=== PATIENT | female | born 1955 | race Caucasian/White ===

== ENCOUNTER → 2017-03-31 | Outpatient (CLI) | payer BC ==
--- NOTE | 2017-04-05 07:37 | MM ---
Reason for exam: follow-up at short interval from prior study. Last mammogram was performed 10 months ago. History: Patient is postmenopausal and is nulliparous. Family history of breast cancer in sister and breast cancer in maternal aunt at age 50. Benign right breast aspiration of the right breast, September 10, 2011. Excisional biopsy of the left breast. 2 excisional biopsies of the right breast. Taking estrogen for 17 years 1 month. Physical Findings: Nurse Summary: less than 0.1cm nodule in the left breast (nurse kp). MG 3D Diag Mammo W/Cad JOE Bilateral CC and MLO view(s) were taken. Prior study comparison: June 04, 2016, right breast MG 3d diag mammo w/cad RT. June 04, 2016, right breast US breast limited RT. December 01, 2015, bilateral MG 3d diag mammo w/cad JOE. There are scattered fibroglandular densities. There is a well circumscribed mass in the upper outer quadrant measuring 5mm on right breast. Previously sonographic cyst at 10 o'clock. These results were verbally communicated with the patient and result sheet given to the patient on 03/31/17. ASSESSMENT: Incomplete: need additional imaging evaluation, BI-RAD 0 RECOMMENDATION: Ultrasound of both breasts. (right 12 o'clock, left at palpable)
--- NOTE | 2017-04-05 07:42 | USB ---
Reason for exam: additional evaluation requested from abnormal screening. History: Patient is postmenopausal and is nulliparous. Family history of breast cancer in sister and breast cancer in maternal aunt at age 50. Benign right breast aspiration of the right breast, September 10, 2011. Excisional biopsy of the left breast. 2 excisional biopsies of the right breast. Taking estrogen for 17 years 1 month. US Breast Limited BILAT Right breast ultrasound demonstrates a 0.3 x 0.3 x 0.3cm round, cystic lesion at 12 o'clock and a 0.8 x 0.4 x 0.4cm oval, irregular, hypoechoic lesion at 12 o'clock for which a biopsy is recommended. Ductal prominence retroareolar position. Left breast ultrasound demonstrates a 0.3 x 0.2 x 0.2cm oval lesion too small to characterize at 1 o'clock, a 0.3 x 0.3 x 0.2cm oval lesion too small to characterize at 2 o'clock over palpable BB marker and a 0.3 x 0.3 x 0.3cm round, cystic lesion at 3 o'clock. These results were verbally communicated with the patient and result sheet given to the patient on 03/31/17. ASSESSMENT: Suspicious, BI-RAD 4 RECOMMENDATION: Ultrasound core biopsy of the right breast. (12 o'clock) Called Dr. Alfred with mammographic findings and has scheduled an appointment for the patient for 04/21/17 at 10:[address] Gupta. Right ultrasound core biopsy scheduled for 04/05/17 at 8 o'clock. PRELIMINARY REPORT CALLED AND FAXED TO DR. GUPTA ON 04/05/17 /TP.
== END | disposition home or self-care (01) ==
LOC: RADMAMWWP 13:44
PROVIDERS: ATTEND Family Medicine
DX: R92.8 Other abnormal and inconclusive findings on diagnostic imaging of breast (principal)
CPT/HCPCS: 76642; G0204; G0279

== ENCOUNTER → 2017-04-05 | Day surgery (SDC) | payer BC ==
[2017-04-05 07:32] VITALS: RESP 16; BMI 30.4
--- NOTE | 2017-04-05 09:12 | USB ---
EXAMINATION TYPE: US biopsy breast VAD RT DATE OF EXAM: 04/05/2017 CLINICAL HISTORY: R92.8 Abnormal mammogram. TECHNIQUE: Ultrasound guided core biopsy of right breast. COMPARISON: Prior ultrasound 03/31/2017 FINDINGS: The procedure of ultrasound guided vacuum assisted core biopsy was explained to the patient . Benefits, alternatives, and risks were discussed. An informed consent was then obtained. The patient was placed in supine positioning for imaging and for the procedure. The overlying skin w as prepped and draped in usual sterile fashion. Lidocaine buffered with bicarbonate was used as anes thetic into the skin and subcutaneous tissue up to area of concern in the right breast 12:00. A blane was made with surgical scalpel. Under ultrasound guidance, a 12-gauge vacuum assisted biopsy gun device was used to obtain 2 core eva ples. Following this, a biopsy clip was left in lesion. The patient tolerated the procedure well without any immediate complication. The patient was kept in the radiology department for short stay after the procedure and then discharged home in stable condi tion. IMPRESSION: Successful, uncomplicated ultrasound guided vacuum assisted core biopsy of area of concer n in the right breast, full pathology results to follow.
--- NOTE | 2017-04-05 09:32 | MM ---
Reason for exam: additional evaluation requested from abnormal screening. Last mammogram was performed less than 1 month ago. History: Patient is postmenopausal and is nulliparous. Family history of breast cancer in sister and breast cancer in maternal aunt at age 50. Benign right breast aspiration of the right breast, September 10, 2011. Excisional biopsy of the left breast. 2 excisional biopsies of the right breast. Taking estrogen for 17 years 1 month. MG Diagnostic Mammo RT Wo CAD CC and MLO view(s) were taken of the right breast. Prior study comparison: March 31, 2017, bilateral MG 3d diag mammo w/cad JOE. June 04, 2016, right breast MG 3d diag mammo w/cad RT. ASSESSMENT: Post procedure mammogram for marker placement RECOMMENDATION: Ultrasound of the right breast in 6 months. PENDING PATHOLOGY RESULTS.
[2017-04-05 11:03] VITALS: BP 125/75; PULSE 68; TEMP 97.5
== END ==
LOC: RADUSWWP 07:03
PROVIDERS: ATTEND Surgery
DX: N60.31 Fibrosclerosis of right breast (principal); R92.8 Other abnormal and inconclusive findings on diagnostic imaging of breast; N64.89 Other specified disorders of breast; Z88.1 Allergy status to other antibiotic agents; Z88.5 Allergy status to narcotic agent; Z88.8 Allergy status to other drugs, medicaments and biological substances
CPT/HCPCS: 88305; 19083; G0206; A4648

== ENCOUNTER → 2017-10-07 | Outpatient (CLI) | payer BC ==
--- NOTE | 2017-10-10 12:38 | MM ---
Reason for exam: additional evaluation requested from prior study. Last mammogram was performed 6 months ago. History: Patient is postmenopausal and is nulliparous. Family history of breast cancer in sister and breast cancer in maternal aunt at age 50. Benign US biopsy breast VAD RT of the right breast, April 05, 2017. Benign right breast aspiration of the right breast, September 10, 2011. Excisional biopsy of the left breast. 2 excisional biopsies of the right breast. Taking estrogen for 17 years 1 month. Physical Findings: Nurse did not find any significant physical abnormalities on exam. MG 3D Diag Mammo W/Cad RT CC and MLO view(s) were taken of the right breast. Prior study comparison: April 05, 2017, right breast MG diagnostic mammo RT wo CAD. March 31, 2017, bilateral MG 3d diag mammo w/cad JEO. The breast tissue is heterogeneously dense. This may lower the sensitivity of mammography. No suspicious abnormality. Post biopsy change next to the ribbon marker. Additional right biopsy coil marker. No significant new findings when compared with previous films. These results were verbally communicated with the patient and result sheet given to the patient on 10/07/17. ASSESSMENT: Benign, BI-RAD 2 RECOMMENDATION: Routine screening mammogram of both breasts in 6 months. Back on schedule for March 2018.
--- NOTE | 2017-10-10 12:41 | USB ---
Reason for exam: additional evaluation requested from prior study. History: Patient is postmenopausal and is nulliparous. Family history of breast cancer in sister and breast cancer in maternal aunt at age 50. Benign US biopsy breast VAD RT of the right breast, April 05, 2017. Benign right breast aspiration of the right breast, September 10, 2011. Excisional biopsy of the left breast. 2 excisional biopsies of the right breast. Taking estrogen for 17 years 1 month. US Breast RT Right breast ultrasound includes all four quadrants, the retroareolar region and axilla. Finding demonstrates a duct at 8 o'clock, a 0.5 x 0.5 x 0.3cm oval, cystic, benign lesion at 9 o'clock, a 0.4 x 0.3 x 0.3cm oval, cystic, benign lesion at 10 o'clock and clip seen at 12 o'clock with no suspicious sonographic finding in the previously biopsied area. These results were verbally communicated with the patient and result sheet given to the patient on 10/07/17. ASSESSMENT: Benign, BI-RAD 2 RECOMMENDATION: Routine screening mammogram of both breasts in 6 months. Back on schedule for March 2018.
== END ==
LOC: RADMAMWWP 14:57
PROVIDERS: ATTEND Surgery
DX: R92.8 Other abnormal and inconclusive findings on diagnostic imaging of breast (principal)
CPT/HCPCS: 77065; 76641; G0279

== ENCOUNTER → 2018-02-07 | Outpatient (CLI) | payer BC ==
--- NOTE | 2018-02-07 22:41 | CT ---
EXAMINATION TYPE: CT orbits wo/w con DATE OF EXAM: 02/07/2018 COMPARISON: None HISTORY: Swelling Right orbit marked by BB CT DLP: 717.4 mGycm Automated exposure control for dose reduction was used. CONTRAST: Performed without and with IV Contrast, patient injected with 100 mL of Isovue 300. FINDINGS: Globes are intact bilaterally. Rectus muscles are symmetric and within normal limits. Intraconal fat is preserved bilaterally. Orbital floors and alvarez are intact. There is metallic BB at site of palpab le abnormality identified axial image 21. At this level there is rim-enhancing oval 7 x 5 mm lesion a djacent to right aspect of nasal bridge felt to reflect inflammation of the nasolacrimal sac related to impairment in the the lacrimal drainage system. Visualized paranasal sinuses are clear. Ostiomeatal complexes patent bilaterally. Visualized portion of brain parenchyma is unremarkable. No suspicious enhancement is noted. IMPRESSION: ABOVE, SUSPECT DACROCYSTITIS IF SYMPTOMS DO NOT RESOLVE CONSIDER IMAGING FOLLOW-UP IN 2-3 MONTHS T TRACY.
== END ==
LOC: RADCTMAIN 17:32
PROVIDERS: ATTEND Ophthalmology
DX: H04.321 Acute dacryocystitis of right lacrimal passage (principal); Z88.8 Allergy status to other drugs, medicaments and biological substances; Z88.6 Allergy status to analgesic agent; Z88.1 Allergy status to other antibiotic agents
CPT/HCPCS: 70482; Q9967

== ENCOUNTER 2018-02-17 07:31 | Day surgery (SDC) | payer BC ==
[2018-02-15 16:09] VITALS: BMI 28.6
[~2018-02-17 07:31] MED LIST: LACTATED RINGERS 1,000 ML IV SCH; LIDOCAINE 1% 20 ML VIAL (10MG/ML) FOR IV START INTRADERMA PRN
[2018-02-17 07:59] VITALS: TEMP 97.6
[2018-02-17] MEDS ORDERED: PROPOFOL 10 MG/ML 20 ML VIAL IV ONE (08:03)
[2018-02-17] MEDS ORDERED: LIDOCAINE 1% INJ 10MG/ML (20 ML MDV) ONE (08:03)
[2018-02-17 08:05] LABS: Glucose,Whole Blood 93 mg/dL (75-99)
--- NOTE | 2018-02-17 08:35 | P.PCN ---
Date of Procedure: 02/17/18 Procedure(s) Performed: Brief history: Patient is a pleasant 62-year-old white female scheduled for an elective upper endoscopy as well as colonoscopy as a part of evaluation of GERD and intermittent rectal bleeding. She has good for the last 2 years duration has been maintained on now Prilosec 20 mg daily and has occasional breakthrough heartburn. She is been having intermittent rectal bleeding for the last 1 month duration. Procedure performed: Esophagogastroduodenoscopy with biopsy Colonoscopy with biopsy Preoperative diagnosis: Intermittent rectal bleeding Long-standing history of GERD Anesthesia: MAC Procedure: After informed consent was obtained from the patient was brought into the endoscopy unit and IV sedation was administered by anesthesia under continuous monitoring. Initially upper endoscopy was done. The Olympus GF 160 video endoscope was inserted inserted into the mouth and esophagus intubated without any difficulty and was gradually advanced into the stomach and duodenum and carefully examined. The bulb and second part of the duodenum appeared normal. The scope was then withdrawn into the stomach adequately insufflated with air and upon careful examination the antrum had scattered erosions and biopsies were done from this area. The body, cardia and fundus appeared normal. There are scattered gastric polyps noted in the body of the stomach which were biopsied. The scope was then withdrawn into the esophagus. The GE junction was located at 38 cm to the incisors. It appeared regular wsuperficial erosions consistent with LA grade B reflux esophagitis Rest of the esophagus appeared normal. Patient tolerated the procedure well. At this time the patient continued to remain sedation. Initial digital rectal examination was normal. Olympus CF 160 video colonoscope was then inserted into the rectum and gradually advanced to the cecum without any difficulty. Careful examination was performed as the scope was gradually being withdrawn. The prep was excellent. The cecum, ascending colon, transverse colon, descending colon, sigmoid colon and rectum appeared normal. In the distal rectum there was mild patchy areas of erythema consistent with proctitis and biopsies were done from this area. Retroflexion was performed in the rectum and small internal hemorrhoids were noted. Patient tolerated the procedure well. Impression: 1. Upper endoscopy revealed mild antral gastritis, small gastric polyps and grade B reflux esophagitis 2. Colonoscopy revealed small internal hemorrhoids and mild distal proctitis. Recommendations: Findings of this examination were discussed with the patient as well as family. She was advised to follow with the biopsy results. Continue with Prilosec 20 mg daily and follow antireflux measures She will use [id number] osmotic laxatives as needed for the chronic constipation. She can have a repeat screening colonoscopy in 10 years
[2018-02-17] MEDS ORDERED: IV FLUID CONTINUATION 1,000 ML IV ONE (08:38)
[2018-02-17 08:55] VITALS: BP 115/75; PULSE 67; RESP 16
--- NOTE | 2018-02-21 17:01 | CDI ---
Outpatient Documentation Clarification Form Date: 02/21/18 CDS/Vp Informatics Name: Flores Daley Phone: If any questions, call Juliane Pearl Donkey Doctor at [phone] Patient Name: Monet Haddad Admit Date: 02/17/18 Discharge Date: 02/17/18 ATTENTION: The [facility] Coding Staff appreciate your assistance in clarifying documentation. Please respond to the clarification below the line at the bottom and electronically sign. The [facility] Coding staff will review the response and follow-up if needed. Please note: Queries are made part of the Legal Health Record. If you have any questions, please contact the Donkey Doctor. Dear Dr. Aden, What is the cause of the rectal bleeding? Thank you for your kind consideration. MTDD
--- NOTE | 2018-02-24 12:49 | CDI ---
Outpatient Documentation Clarification Form Date: 02/24/18 CDS/Care Manager Name: Flores Daley Phone: If any questions, call Juliane Pearl Barnworker Groom at [phone] Patient Name: Monet Haddad Admit Date: 02/17/18 Discharge Date: 02/17/18 ATTENTION: The [facility] Coding Staff appreciate your assistance in clarifying documentation. Please respond to the clarification below the line at the bottom and electronically sign. The [facility] Coding staff will review the response and follow-up if needed. Please note: Queries are made part of the Legal Health Record. If you have any questions, please contact the Barnworker Groom. Dear Dr. Aden, What is the cause of the rectal bleeding? Thank you for your kind consideration. MTDD
--- NOTE | 2018-02-28 11:31 | CDI ---
Outpatient Documentation Clarification Form Date: 02/28/18 CDS/Retarder Operator Name: Flores Daley Phone: If any questions, call Juliane Pearl Dairy Husbandry Worker at [phone] Patient Name: Monet Haddad Admit Date: 02/17/18 Discharge Date: 02/17/18 ATTENTION: The [facility] Coding Staff appreciate your assistance in clarifying documentation. Please respond to the clarification below the line at the bottom and electronically sign. The [facility] Coding staff will review the response and follow-up if needed. Please note: Queries are made part of the Legal Health Record. If you have any questions, please contact the Dairy Husbandry Worker. Dear Dr. Aden, What is the cause of the rectal bleeding? Our coding resources require us to query and ask. If you do not understand what is needed from you, please contact my launch manager above. This is a 3rd query. Thank you for your kind consideration. Bleeding is from both proctitis and internal hemorrhoids MTDD
== END 2018-02-17 09:34 | disposition home or self-care (01) ==
LOC: ORWHC2ENDO 07:31
PROVIDERS: ATTEND Internal Medicine Gastroenterology
DX: K29.50 Unspecified chronic gastritis without bleeding (principal); K31.7 Polyp of stomach and duodenum; K21.0 Gastro-esophageal reflux disease with esophagitis; K64.8 Other hemorrhoids; K62.89 Other specified diseases of anus and rectum; E07.9 Disorder of thyroid, unspecified; Z79.899 Other long term (current) drug therapy; Z79.2 Long term (current) use of antibiotics; Z79.890 Hormone replacement therapy; Z79.52 Long term (current) use of systemic steroids; Z88.5 Allergy status to narcotic agent; Z88.8 Allergy status to other drugs, medicaments and biological substances; Z91.041 Radiographic dye allergy status; Z88.1 Allergy status to other antibiotic agents
CPT/HCPCS: 88305; 45380; 43239; J2001; J2704

== ENCOUNTER 2018-03-14 06:17 | Day surgery (SDC) | payer BC ==
[2018-03-07 14:36] VITALS: BMI 28.8
[~2018-03-14 06:17] MED LIST changes: +DEXAMETHASONE SOD PHOSPHATE 10 MG/ML 1 ML VIAL IV ONE; +MIDAZOLAM 2 MG/2 ML VIAL IV PRN; +ONDANSETRON 4 MG/2 ML VIAL IVP ONE; +ceFAZolin 1,000 MG in DEXTROSE/WATER 1 50ML.BAG IVPB ONE; +ceFAZolin IN SWFI 2 GM/20 ML SYRINGE IVP ONE; +fentaNYL (PF) 50 MCG/ML 2 ML AMP IV PRN; +metroNIDAZOLE-NS PMX 500 MG in SALINE 1 100ML.BAG IVPB ONE
[2018-03-14 07:15] LABS: Glucose,Whole Blood 98 mg/dL (75-99)
[2018-03-14] MEDS ORDERED: LIDOCAINE 1% INJ 10MG/ML (20 ML MDV) ONE (07:57)
[2018-03-14] MEDS ORDERED: PROPOFOL 10 MG/ML 20 ML VIAL IV ONE (07:57)
[2018-03-14] MEDS ORDERED: BUPIVACAINE-EPI 0.5%-1:200,000 10 ML VIAL SQ ONE (08:19)
[2018-03-14] MEDS ORDERED: LIDOCAINE 1%-EPI 1:100,000 30 ML VIAL SQ ONE ×2 (08:19)
[2018-03-14] MEDS ORDERED: EPINEPHrine 1 MG/ML 1 ML AMP SQ ONE (08:32)
[2018-03-14 09:08] VITALS: TEMP 97
--- NOTE | 2018-03-14 09:14 | P.OP ---
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 Continues to grow change and is bothersome. Operative Findings: Right nasal dermoid mass attached to the bone of the nasal bones Description of Procedure: This patient went to the operative room was placed in the supine position. A general inhalation anesthetic was administered and an LMA was inserted. The face was sterilely prepped and draped in usual fashion marked and anesthetized with lidocaine 1% with epinephrine 1 100,000. 10 minutes were allowed wait for full vasoconstrictive effects to take place. A horizontal incision was made over this right nasal mass and this mass was dissected free and removed completely. Hemostasis was obtained with use of delicate cautery. We did extensive undermining in all directions and mobilize the nasal musculature and reapproximated that to close this large defect with a 5-0 Monocryl. Skin edges were trimmed. The close the deep dermal layer with 5-0 Monocryl and we closed the skin with a 6-0 Prolene in a running nonlocking fashion. Complex closure was obtained and excellent cosmetic results were obtained. Bacitracin was applied. The patient tolerated this well. Patient was taken to postanesthesia recovery in excellent condition.
[2018-03-14 10:26] VITALS: BP 125/82; PULSE 65; RESP 18
== END 2018-03-14 10:35 | disposition home or self-care (01) ==
LOC: OR 06:17
PROVIDERS: ATTEND Otolaryngology
DX: D16.4 Benign neoplasm of bones of skull and face (principal); K21.9 Gastro-esophageal reflux disease without esophagitis; H81.09 Meniere's disease, unspecified ear; L71.9 Rosacea, unspecified; K11.20 Sialoadenitis, unspecified; E07.9 Disorder of thyroid, unspecified; Z86.73 Personal history of transient ischemic attack (TIA), and cerebral infarction without residual deficits; Z79.2 Long term (current) use of antibiotics; Z79.890 Hormone replacement therapy; Z79.52 Long term (current) use of systemic steroids; Z79.899 Other long term (current) drug therapy; Z88.1 Allergy status to other antibiotic agents; Z88.5 Allergy status to narcotic agent; Z88.8 Allergy status to other drugs, medicaments and biological substances; Z91.041 Radiographic dye allergy status; Z91.09 Other allergy status, other than to drugs and biological substances
CPT/HCPCS: 88305; 30125; J0171; J1100; J2405; J2001; J2704

== ENCOUNTER → 2018-05-16 | Outpatient (CLI) | payer BC ==
--- NOTE | 2018-05-16 15:05 | MM ---
Reason for exam: additional evaluation requested from prior study. Last mammogram was performed 7 months ago. History: Patient is postmenopausal and is nulliparous. Family history of breast cancer in sister and breast cancer in maternal aunt at age 50. Benign US biopsy breast VAD RT of the right breast, April 05, 2017. Benign right breast aspiration of the right breast, September 10, 2011. Excisional biopsy of the left breast. 2 excisional biopsies of the right breast. Taking estrogen for 17 years 1 month. Physical Findings: Nurse did not find any significant physical abnormalities on exam. MG 3D Diag Mammo W/Cad JOE Bilateral CC and MLO view(s) were taken. Prior study comparison: October 07, 2017, right breast MG 3d diag mammo w/cad RT. April 05, 2017, right breast MG diagnostic mammo RT wo CAD. The breast tissue is heterogeneously dense. This may lower the sensitivity of mammography. Right biopsy markers noted. Post biopsy change on the right. These results were verbally communicated with the patient and result sheet given to the patient on 05/16/18. ASSESSMENT: Benign, BI-RAD 2 RECOMMENDATION: Routine screening mammogram of both breasts in 1 year.
== END ==
LOC: RADMAMWWP 13:13
PROVIDERS: ATTEND Obstetrics & Gynecology
DX: R92.8 Other abnormal and inconclusive findings on diagnostic imaging of breast (principal)
CPT/HCPCS: 77062; 77066

== ENCOUNTER → 2018-07-06 | Outpatient (CLI) | payer BC ==
[2018-07-06 20:03] LABS: Rheumatoid Factor 9 IU/mL (0-15)
[2018-07-06 20:16] LABS: Thyroid Peroxidase Antibodies 337.3 U/mL (0.0-60.0)
== END | disposition home or self-care (01) ==
LOC: LABWHC1 13:16
PROVIDERS: ATTEND Otolaryngology
DX: R53.83 Other fatigue (principal)
CPT/HCPCS: 36415; 85652; 86038; 86235; 86376; 86431

== ENCOUNTER → 2019-04-13 | Outpatient (CLI) | payer BC ==
[2019-04-13 11:57] LABS: Basophils # (A) 0.2 k/uL (0-0.2); Basophils % (A) 3 %; Eosinophils # (A) 0.2 k/uL (0-0.7); Eosinophils % (A) 2 %; HCT 40.8 % (34.0-46.0); Lymphocytes % (A) 28 %; MCH 30.5 pg (25.0-35.0); MCHC 34.3 g/dL (31.0-37.0); MCV 89.1 fL (80.0-100.0); Mean Platelet Volume 7.9; Monocytes # (A) 0.5 k/uL (0-1.0); Monocytes % (A) 7 %; Neutrophils # (A) 4.1 k/uL (1.3-7.7); Neutrophils % (A) 58 %; Platelet Count 359 k/uL (150-450); RBC 4.59 m/uL (3.80-5.40); RDW 13.8 % (11.5-15.5); WBC 7.1 k/uL (3.8-10.6)
[2019-04-13 17:33] LABS: African American GFR (CKD) 69.4 (60.0-200.0); Albumin 4.5 g/dL (3.80-4.90); Albumin/Globulin Ratio 2.37 (1.60-3.17); Calcium 9.5 mg/dL (8.7-10.3); Chol/HDL Ratio 4.17; Globulin 1.9 g/dL (1.6-3.3); LDL Cholesterol,Calculated 128.6 mg/dL (0.0-131.0); Non-African American GFR(CKD) 59.9 (60.0-200.0); Potassium 4.2 mmol/L (3.5-5.5); Total Bilirubin 0.5 mg/dL (0.3-1.2); Total Protein 6.4 g/dL (6.2-8.2); VLDL Calculation 20.4 mg/dL (5.00-40.00)
[2019-04-13 17:41] LABS: T4, Free (Free Thyroxine) 1.2 ng/dL (0.80-1.80)
== END ==
LOC: LABWHC1 10:23
PROVIDERS: ATTEND Physician Assistant
DX: Z00.00 Encounter for general adult medical examination without abnormal findings (principal)
CPT/HCPCS: 36415; 80053; 80061; 84439; 84443; 84480; 85025

== ENCOUNTER 2019-06-25 17:35 | Emergency (ER) | payer BC ==
--- NOTE | 2019-06-25 17:53 | ED ---
Chest Pain HPI - General Chief Complaint: Chest Pain Stated Complaint: chest pain Time Seen by Provider: 06/25/19 17:50 Source: patient, RN notes reviewed, old records reviewed Mode of arrival: ambulatory Limitations: no limitations - History of Present Illness Initial Comments: This is a 64-year-old female who presents to us today for evaluation with the chest. Nonspecific chest patient states it feels like reflux with substernal left sided. Patient was sent in by her primary care for evaluation she has a long history of type of chest pain heart catheterization" 20 years ago. Note following occurs are normal. Patient states that she thinks that this is reflux or GERD. No trauma. No fevers cough or congestion. MD Complaint: chest pain -: hour(s) Onset: during rest Pain Location: substernal, left chest Pain Radiation: LUE Severity: mild Severity scale (1-10): 3 Quality: aching, sharp Consistency: constant Improves With: nothing Worsens With: nothing Anginal Symptoms: nausea Other Symptoms: cough Treatments Prior to Arrival: none - Related Data Home Medications Medication Instructions Recorded Confirmed Esomeprazole Magnesium [NexIUM] 40 mg PO DAILY PRN 04/01/17 06/25/19 Estradiol [Climara 0.025 MG] 1 patch TRANSDERM [id number] 04/01/17 06/25/19 Levothyroxine Sodium [Tirosint] 88 mcg PO DAILY 04/01/17 06/25/19 Allergies Allergy/AdvReac Type Severity Reaction Status Date / Time adhesive tape Allergy BLISTERS, Verified 06/25/19 19:54 RED SKIN Iodinated Contrast Media Allergy Nausea & Verified 06/25/19 19:54 [Iodinated Contrast- Oral Vomiting, and IV Dye] SHAKING, POSS SOB meperidine HCl [From Demerol] Allergy Nausea & Verified 06/25/19 19:54 Vomiting methocarbamol [From Robaxin] Allergy Rash/Hives Verified 06/25/19 19:54 minocycline Allergy Anaphylaxis Verified 06/25/19 19:54 moxifloxacin [From Avelox] Allergy tendon Verified 06/25/19 19:54 problem Quinolones Allergy problem Verified 06/25/19 19:54 with tendon scopolamine Allergy Rapid Verified 06/25/19 19:54 Heart Rate Review of Systems ROS Statement: Those systems with pertinent positive or pertinent negative responses have been documented in the HPI. ROS Other: All systems not noted in ROS Statement are negative. EKG Findings - EKG Comments: EKG Findings:: EKG shows NSR rate of 69 CA 160 QRS 92 QTc 450 Past Medical History Past Medical History: Deep Vein Thrombosis (DVT), Eye Disorder, GERD/Reflux, Thyroid Disorder Additional Past Medical History / Comment(s): occasional tachycardia, DVT-LEG , MACULAR DEGENERATION BILATERAL EYES, HYPOGLYCEMIA History of Any Multi-Drug Resistant Organisms: None Reported Past Surgical History: Breast Surgery, Heart Catheterization, Hernia Repair, Hysterectomy, Tonsillectomy Additional Past Surgical History / Comment(s): Right breast cyst aspiration, excisional biopsy left breast, 2 excisional biopsies right breast. D&C X4, LAPAROSCOPIC EXAM, LAPAROTOMY-ECTOPIC PREG, RIGHT WRIST SURGERY, PAIN CLINIC INJECTIONS, INGUINAL AND FEMORAL HERNIA REPAIR, EGD,COLONOSCPY, PILONIDAL CYST SURGERY Past Anesthesia/Blood Transfusion Reactions: Previous Problems w/ Anesthesia, Motion Sickness, Postoperative Nausea & Vomiting (PONV) Past Psychological History: No Psychological Hx Reported Smoking Status: Never smoker - Past Family History Sister(s) Family Medical History: Cancer Additional Family Medical History / Comment(s): Sister SKIN CANCER-breast cancer/brain tumor General Exam Limitations: no limitations General appearance: alert, in no apparent distress Head exam: Present: atraumatic, normocephalic, normal inspection Eye exam: Present: normal appearance, PERRL, EOMI. Absent: scleral icterus, conjunctival injection, periorbital swelling ENT exam: Present: normal exam, mucous membranes moist Neck exam: Present: normal inspection. Absent: tenderness, meningismus, lymphadenopathy Respiratory exam: Present: normal lung sounds bilaterally. Absent: respiratory distress, wheezes, rales, rhonchi, stridor Cardiovascular Exam: Present: regular rate, normal rhythm, normal heart sounds. Absent: systolic murmur, diastolic murmur, rubs, gallop, clicks GI/Abdominal exam: Present: soft, normal bowel sounds. Absent: distended, tenderness, guarding, rebound, rigid Extremities exam: Present: normal inspection, full ROM, normal capillary refill. Absent: tenderness, pedal edema, joint swelling, calf tenderness Back exam: Present: normal inspection Neurological exam: Present: alert, oriented X3, CN II-XII intact Psychiatric exam: Present: normal affect, normal mood Skin exam: Present: warm, dry, intact, normal color. Absent: rash Course Vital Signs 06/25/19 06/25/19 06/25/19 17:38 17:50 19:19 Temperature 97.7 F Pulse Rate 68 80 Pulse Rate [ 66 Sanitation Engineer ] Respiratory 18 16 Rate Blood Pressure 137/83 126/70 O2 Sat by Pulse 99 98 Oximetry - Reevaluation(s) Reevaluation #1: 06/25/19 20:25 Medical record is reviewed Reevaluation #2: 06/25/19 20:25 She says she's feeling well able to ambulate without difficulty or shortness of breath Chest Pain MDM - MDM 64 female detail with atypical chest pain she believes is reflux patient has normal EKG normal CT of chest lab work is also normal patient will be discharged home Disposition Clinical Impression: Atypical chest pain, Chest pain Disposition: HOME SELF-CARE Condition: Good Instructions (If sedation given, give patient instructions): Chest Pain (ED) Is patient prescribed a controlled substance at d/c from ED?: No Referrals: Abiel Alfred MD [Primary Care Provider] - 1-2 days
[2019-06-25 18:11] LABS: Basophils # (A) 0.1 k/uL (0-0.2); Basophils % (A) 1 %; Eosinophils # (A) 0.2 k/uL (0-0.7); Eosinophils % (A) 2 %; HCT 40.8 % (34.0-46.0); HGB 13.9 gm/dL (11.4-16.0); Lymphocytes # (A) 2.6 k/uL (1.0-4.8); Lymphocytes % (A) 27 %; MCH 30.9 pg (25.0-35.0); MCV 90.8 fL (80.0-100.0); Mean Platelet Volume 7.3; Monocytes # (A) 0.5 k/uL (0-1.0); Monocytes % (A) 5 %; Neutrophils # (A) 5.8 k/uL (1.3-7.7); Neutrophils % (A) 62 %; Platelet Count 350 k/uL (150-450); RBC 4.49 m/uL (3.80-5.40); RDW 12.8 % (11.5-15.5); WBC 9.4 k/uL (3.8-10.6)
[2019-06-25 18:18] LABS: INR 0.9 (<1.2); Partial Thromboplastin Time 25.6 sec (22.0-30.0); Prothrombin Time 10.1 sec (9.0-12.0)
[2019-06-25 18:20] LABS: Albumin 4.4 g/dL (3.5-5.0); Calcium 9.9 mg/dL (8.4-10.2); Magnesium 2.1 mg/dL (1.6-2.3); Potassium 4.1 mmol/L (3.5-5.1); Total Bilirubin 0.5 mg/dL (0.2-1.3); Total Protein 7.2 g/dL (6.3-8.2)
--- NOTE | 2019-06-25 18:35 | XR ---
EXAMINATION TYPE: XR chest 2V DATE OF EXAM: 06/25/2019 COMPARISON: 12/03/2013 HISTORY: Chest pain TECHNIQUE: Frontal and lateral views of the chest are obtained. FINDINGS: Heart and mediastinum are normal. Lungs are clear. Diaphragm is normal. Bony thorax appear s normal. IMPRESSION: Normal chest. No change.
[2019-06-25] MEDS ORDERED: FAMOTIDINE 20 MG/2 ML VIAL IV STA (18:48)
[2019-06-25] MEDS ORDERED: methylPREDNISolone SOD SUCCI 125 MG/2 ML VIAL IV STA (18:48)
[2019-06-25] MEDS ORDERED: diphenhydrAMINE 50 MG/ML 1 ML VIAL IVP STA (18:48)
[2019-06-25 19:20] VITALS: RESP 16
--- NOTE | 2019-06-25 19:50 | CT ---
EXAMINATION TYPE: CT angio chest DATE OF EXAM: 06/25/2019 7:45 PM COMPARISON: None HISTORY: SOB CT DLP: 350.6 mGycm Automated exposure control for dose reduction was used. CONTRAST: CTA scan of the thorax is performed with IV Contrast, patient injected with 80 mL of Isovue 370, pulm onary embolism protocol. . There are 3-D post processed images. FINDINGS: Mediastinum is normal. There is no mediastinal adenopathy. There are no hilar masses. There is normal contrast opacification of the thoracic aorta. There is no aneurysm or dissection. Ascending aorta me asures 3.5 cm. There is normal contrast opacification of the pulmonary arteries. There are no filling defects. The lungs are clear of infiltrate. There is no pleural effusion. There is no evidence of a pulmonary mass. Upper abdominal soft tissues are intact. The bony thorax appears intact. There is no thoracic c ompression fracture. IMPRESSION: NO EVIDENCE OF PULMONARY EMBOLISM. NEGATIVE EXAM.
[2019-06-25 20:33] VITALS: BP 126/64; PULSE 66; TEMP 98.3
== END 2019-06-25 20:36 | disposition home or self-care (01) ==
LOC: EC 17:35
DX: R07.89 Other chest pain (principal); R11.0 Nausea; R05 Cough; E07.9 Disorder of thyroid, unspecified; K21.9 Gastro-esophageal reflux disease without esophagitis; Z88.1 Allergy status to other antibiotic agents; Z88.5 Allergy status to narcotic agent; Z88.8 Allergy status to other drugs, medicaments and biological substances; Z91.041 Radiographic dye allergy status; Z91.048 Other nonmedicinal substance allergy status; Z79.890 Hormone replacement therapy; Z79.899 Other long term (current) drug therapy; Z95.818 Presence of other cardiac implants and grafts
CPT/HCPCS: 36415; 93005; 83880; 80053; 83690; 83735; 84484; 85025; 85610; 85730; 71046; 71275; 99285; 96374; 96375 ×2; J1200; J2930; Q9967

== ENCOUNTER 2019-10-06 14:13 | Observation (INO) | payer BC ==
[2019-10-06] MEDS ORDERED: MAG HYDROX/AL HYDROX/SIMETH 30 ML, HYOSCYAMINE ELIXIR 10 ML, LIDOCAINE VISCOUS 2% 10 ML PO STA ×3 (14:50)
[2019-10-06] MEDS ORDERED: PANTOPRAZOLE 40 MG/10 ML VIAL IVP STA (14:51)
[2019-10-06 15:10] LABS: Basophils # (A) 0.1 k/uL (0-0.2); Basophils % (A) 1 %; Eosinophils # (A) 0.2 k/uL (0-0.7); Eosinophils % (A) 2 %; HCT 39.7 % (34.0-46.0); HGB 13.5 gm/dL (11.4-16.0); Lymphocytes # (A) 2.5 k/uL (1.0-4.8); Lymphocytes % (A) 28 %; MCH 29.8 pg (25.0-35.0); MCV 87.6 fL (80.0-100.0); Mean Platelet Volume 8.2; Monocytes # (A) 0.5 k/uL (0-1.0); Monocytes % (A) 6 %; Neutrophils # (A) 5.6 k/uL (1.3-7.7); Neutrophils % (A) 62 %; Platelet Count 376 k/uL (150-450); RBC 4.53 m/uL (3.80-5.40); RDW 12.8 % (11.5-15.5); WBC 9.1 k/uL (3.8-10.6)
[2019-10-06] MEDS ORDERED: FAMOTIDINE 20 MG/2 ML VIAL IV STA (15:10)
[2019-10-06] MEDS ORDERED: diphenhydrAMINE 50 MG/ML 1 ML VIAL IVP STA (15:10)
[2019-10-06] MEDS ORDERED: methylPREDNISolone SOD SUCCI 125 MG/2 ML VIAL IV STA (15:10)
[2019-10-06 15:19] LABS: Albumin 4.1 g/dL (3.5-5.0); Calcium 9.3 mg/dL (8.4-10.2); Magnesium 2.2 mg/dL (1.6-2.3); Potassium 3.9 mmol/L (3.5-5.1); Total Bilirubin 0.3 mg/dL (0.2-1.3); Total Protein 6.8 g/dL (6.3-8.2)
[2019-10-06 15:23] LABS: D-Dimer 0.24 mg/L FEU (<0.60); Partial Thromboplastin Time 24.1 sec (22.0-30.0); Prothrombin Time 10.4 sec (9.0-12.0)
--- NOTE | 2019-10-06 16:30 | ED ---
Chest Pain HPI - General Chief Complaint: Chest Pain Stated Complaint: Chest pain Time Seen by Provider: 10/06/19 14:22 Source: patient Mode of arrival: ambulatory Limitations: no limitations - History of Present Illness Initial Comments: The patient is a 64-year-old female past history of thyroid disorder and reflux who presents emergency room was reported epigastric and chest pain. The patient reports that she has had chronic issues with reflux sensation. She is normally on Nexium. She follows with Dr. Aden. States he's been taking the medications in excess as well as adding on Prevacid and states that she continues to have symptoms. The pain is described as a pressure sensation which goes through to her back. She has any neural numbness or weakness. Admits to nausea without vomiting. No fevers or chills. Denies hemoptysis. Does admit that it makes her feel short of breath. She is on hormone therapy. Denies any calf pain or swelling. No history of DVT or PE. She was 20 years ago and had clean coronaries however she did have a stress test last year and was told that she had possible ischemia. She saw Dr. Hinds and he did refer her to [facility] to have a calcium study done however the patient states that her mother got sick and and she was unable to follow-up with this. Denies ripping or tearing sensation to her back. No unilateral numbness or weakness into her extremities. There are no alleviating, precipitating or modifying factors - Related Data Home Medications Medication Instructions Recorded Confirmed Esomeprazole Magnesium [NexIUM] 40 mg PO BID 04/01/17 10/06/19 Estradiol [Climara 0.025 MG] 1 patch TRANSDERM Q14D 04/01/17 10/06/19 Levothyroxine Sodium [Tirosint] 88 mcg PO HS 04/01/17 10/06/19 Allergies Allergy/AdvReac Type Severity Reaction Status Date / Time adhesive tape Allergy BLISTERS, Verified 10/06/19 16:35 RED SKIN Iodinated Contrast Media Allergy Nausea & Verified 10/06/19 16:35 [Iodinated Contrast- Oral Vomiting, and IV Dye] SHAKING, POSS SOB meperidine HCl [From Demerol] Allergy Nausea & Verified 10/06/19 16:35 Vomiting methocarbamol [From Robaxin] Allergy Rash/Hives Verified 10/06/19 16:35 minocycline Allergy Anaphylaxis Verified 10/06/19 16:35 moxifloxacin [From Avelox] Allergy tendon Verified 10/06/19 16:35 problem Quinolones Allergy problem Verified 10/06/19 16:35 with tendon scopolamine Allergy Rapid Verified 10/06/19 16:35 Heart Rate Review of Systems ROS Statement: Those systems with pertinent positive or pertinent negative responses have been documented in the HPI. ROS Other: All systems not noted in ROS Statement are negative. EKG Findings - EKG Comments: EKG Findings:: EKG demonstrates normal sinus rhythm with a ventricular rate of 76. MN interval 156. QRS 84. QTC 441. No acute ST segment elevations or depressions concerning for ischemic changes Past Medical History Past Medical History: Deep Vein Thrombosis (DVT), Eye Disorder, GERD/Reflux, Thyroid Disorder Additional Past Medical History / Comment(s): occasional tachycardia, DVT-LEG , MACULAR DEGENERATION BILATERAL EYES, HYPOGLYCEMIA History of Any Multi-Drug Resistant Organisms: None Reported Past Surgical History: Breast Surgery, Heart Catheterization, Hernia Repair, Hysterectomy, Tonsillectomy Additional Past Surgical History / Comment(s): Right breast cyst aspiration, excisional biopsy left breast, 2 excisional biopsies right breast. D&C X4, LAPAROSCOPIC EXAM, LAPAROTOMY-ECTOPIC PREG, RIGHT WRIST SURGERY, PAIN CLINIC INJECTIONS, INGUINAL AND FEMORAL HERNIA REPAIR, EGD,COLONOSCPY, PILONIDAL CYST SURGERY Past Anesthesia/Blood Transfusion Reactions: Previous Problems w/ Anesthesia, Motion Sickness, Postoperative Nausea & Vomiting (PONV) Past Psychological History: No Psychological Hx Reported Smoking Status: Never smoker Past Alcohol Use History: None Reported Past Drug Use History: None Reported - Past Family History Sister(s) Family Medical History: Cancer Additional Family Medical History / Comment(s): Sister SKIN CANCER-breast cancer/brain tumor General Exam Limitations: no limitations General appearance: alert, in no apparent distress Head exam: Present: atraumatic, normocephalic, normal inspection Eye exam: Present: normal appearance, PERRL, EOMI. Absent: scleral icterus, conjunctival injection, periorbital swelling ENT exam: Present: normal exam, mucous membranes moist Neck exam: Present: normal inspection. Absent: tenderness, meningismus, lymphadenopathy Respiratory exam: Present: normal lung sounds bilaterally. Absent: respiratory distress, wheezes, rales, rhonchi, stridor Cardiovascular Exam: Present: regular rate, normal rhythm, normal heart sounds. Absent: systolic murmur, diastolic murmur, rubs, gallop, clicks GI/Abdominal exam: Present: soft, normal bowel sounds. Absent: distended, tenderness, guarding, rebound, rigid Extremities exam: Present: normal inspection, full ROM, normal capillary refill. Absent: tenderness, pedal edema, joint swelling, calf tenderness Back exam: Present: normal inspection Neurological exam: Present: alert, oriented X3, CN II-XII intact Psychiatric exam: Present: normal affect, normal mood Skin exam: Present: warm, dry, intact, normal color. Absent: rash Course Vital Signs 10/06/19 10/06/19 10/06/19 14:15 14:28 15:00 Temperature 97.4 F L Pulse Rate 78 75 73 Respiratory 20 17 13 Rate Blood Pressure 132/68 123/71 O2 Sat by Pulse 99 99 99 Oximetry 10/06/19 10/06/19 10/06/19 17:00 18:00 18:33 Temperature 97.4 F L Pulse Rate 86 70 70 Respiratory 14 11 L 11 L Rate Blood Pressure 119/77 119/73 119/73 O2 Sat by Pulse 93 L 93 L Oximetry Chest Pain MDM - MDM Upon arrival the patient was placed in room 6. A thorough history and physical exam was performed. I did provide the patient with a GI cocktail and a dose of Protonix to the IV. Laboratory studies were conducted. CBC and CMP are unremarkable. First troponin is negative. D-dimer 0.24 however because the patient's reported symptoms with radiation to her back. Recommended CT of the patient's chest. CT does demonstrate no evidence of pulmonary embolism. Pulmonary interstitial infiltrates are nonspecific. Infiltrates appear new. Because of the CT findings I did add on a BNP. I did recommend hospital admission. I discussed case with Dr. Rendon accepted admission. I will provide the patient with Nitropaste and an aspirin she continues to have 4 out of 10 pain. The patient did agree to the treatment plan. She is awaiting a bed on the floor Disposition Clinical Impression: Chest pain, Acid reflux Disposition: ADMITTED IP TO THIS HOSP Condition: Stable Is patient prescribed a controlled substance at d/c from ED?: No Decision to Admit Reason: Admit from EC Decision Date: 10/06/19 Decision Time: 17:38
--- NOTE | 2019-10-06 17:15 | CT ---
EXAMINATION TYPE: CT chest angio for PE DATE OF EXAM: 10/06/2019 COMPARISON: 06/25/2019 HISTORY: Chest pain, estrogen use, sob. CT DLP: 343.9 mGycm Automated exposure control for dose reduction was used. CONTRAST: Performed with IV Contrast, patient injected with 100 mL of Isovue 370. Multiple axial sections were obtained from the thoracic inlet to the diaphragm with intravenous contr ast and 3-D post processed images. There is some groundglass interstitial diffuse pulmonary infiltrates. Heart appears slightly enlarged . There is no pericardial effusion. There is no pleural effusion. There is no evidence of a pulmonary mass. There is no mediastinal adenopathy. There are no hilar masses. There is normal contrast opacification of the pulmonary arteries. There are no filling defects. Thoracic aorta shows no evidence of aneurys m or dissection. Ascending aorta measures 3.3 cm. The bony thorax is intact. IMPRESSION: No evidence of pulmonary embolism. Pulmonary interstitial infiltrates are nonspecific. Infiltrates ap pear new compared to old CT scan. Heart appears increased compared to old exam. Heart failure is poss ible.
[2019-10-06] MEDS ORDERED: ASPIRIN 81 MG PO STA (17:30)
[2019-10-06] MEDS ORDERED: NITROGLYCERIN OINT 1 INCH/GM PACKET TOPICAL STA (17:30)
[2019-10-06] MEDS ORDERED: NALOXONE 0.4 MG/ML 1 ML VIAL IV PRN (17:38)
[2019-10-06] MEDS ORDERED: ALPRAZolam 0.25 MG TAB PO PRN (18:40)
[2019-10-06] MEDS ORDERED: ACETAMINOPHEN TAB 500 MG TAB PO PRN (18:40)
[2019-10-06] MEDS ORDERED: TEMAZEPAM 15 MG CAP PO PRN (18:40)
--- NOTE | 2019-10-06 19:36 | XR ---
EXAMINATION TYPE: XR chest 1V portable DATE OF EXAM: 10/06/2019 COMPARISON: 06/25/2019 HISTORY: Short of breath TECHNIQUE: FINDINGS: Heart and mediastinum are normal. Lungs are clear. Diaphragm is normal. Bony thorax appears normal. There are chest leads. IMPRESSION: Normal chest. No change.
[2019-10-06] MEDS: LEVOTHYROXINE 88 MCG TAB PO SCH (20:39)
[2019-10-06] MEDS: PANTOPRAZOLE 40 MG/10 ML VIAL IVP SCH (20:39)
[2019-10-06] MEDS ORDERED: NON FORMULARY DRUG (Esomeprazole Magnesium [Nexium] 40 MG) PO SCH (21:00)
--- NOTE | 2019-10-06 22:33 | HP ---
HISTORY AND PHYSICAL DATE OF SERVICE: 10/06/2019 CHIEF COMPLAINT: Chest pain, chest discomfort. HISTORY OF PRESENT ILLNESS: This 64-year-old woman with a past medical history of multiple medical problems including history of GERD, history of DVT, history of hypothyroidism, history of occasional tachycardia, history of cardiac catheterization, being followed by Dr. Abiel Alfred in the outpatient setting had chest discomfort previously. The patient apparently sees Dr. Aden for GERD. The patient apparently had a stress test last year which apparently showed some questionable abnormality. The patient was recommended calcium screening at [place] apparently, but patient did not make it because of the apparent passing of her mother. Currently the patient is complaining of chest discomfort which is felt in the anterior part of chest which is heavy feeling which radiated to the back, left shoulder, left neck, also. The patient also noted some shortness of breath recently. Patient came to [facility] and was admitted for further evaluation and treatment. EKG showed some nonspecific ST-T changes. Creatinine is 1.04. Troponins are negative. A CT angio was negative for pulmonary embolism but CHF was suspected. A chest x-ray was not available at this time. PAST MEDICAL HISTORY: History of GERD, history of DJD, history of hypothyroidism, occasional tachycardia, history of DVT, macular degeneration, history of cardiac catheterization, history of right breast aspiration. MEDICATIONS: Prior to admission, home medications are reviewed include: 1. Tirosint 88 mcg p.o. q.h.s. 2. Climara 1 patch Q 14 days. 3. Nexium 40 mg b.i.d. ALLERGIES: ADHESIVE TAPE, IODINATED CONTRAST DYES,ROBAXIN, DEMEROL, MINOCYCLINE, AVELOX, QUINOLONES, SCOPOLAMINE. FAMILY HISTORY: History of cancer and brain tumor in the family. The father also at age of 36 apparently. 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 No history of smoking. Occasional alcohol intake. REVIEW OF SYSTEMS: ENT: No diminished vision. No diminished hearing. CARDIOVASCULAR system: As mentioned earlier. RESPIRATORY: As mentioned earlier. GI: As mentioned earlier. no dysuria or hematuria. Nervous system: No numbness or weakness. Allergy/Immunology: No asthma or hayfever. Musculoskeletal as mentioned earlier. Hematology/Oncology: No history of anemia. Endocrine: Hypothyroidism. Constitutional: As mentioned earlier. DERMATOLOGY: Negative. RHEUMATOLOGY: Negative. PSYCHIATRY: As mentioned earlier. PHYSICAL EXAMINATION: Alert and oriented times three. Pulse 70. Blood pressure 119/70. Respirations 11. Temperature 97.4, pulse ox 93 percent on room air. HEENT was conjunctivae normal. Oral mucosa moist. NECK is no jugular venous distention. No carotid bruit. No lymph node enlargement. Cardiovascular system: S1, S2. No S3, no S4. RESPIRATORY: Breath sounds diminished in the bases. No rhonchi. No crackles. ABDOMEN: Soft, nontender. No mass palpable. LEGS no edema, no swelling. Nervous system: Higher functions as mentioned earlier. Moves all 4 limbs. No focal motor or sensory deficits. LYMPHATICS: No lymph nodes palpable in the neck, axillae or groin. SKIN: No ulcer. No rash and no bleeding. JOINTS: No active deforming arthropathy. LABS: At this time show CBC within normal limits. The creatinine is 1.05 and glucose 114. ASSESSMENT: 1. Chest discomfort, possible unstable angina. 2. Rule out congestive heart failure. 3. Increased creatinine with possible mild acute renal failure. 4. Increased random blood sugar. 5. History of deep vein thrombosis. 6. History of gastroesophageal reflux disease. 7. History of tachycardia. 8. History of macular degeneration. 9. History of hypoglycemia. 10.History of cardiac catheterization remotely. 11.History of laparotomy for ectopic . 12.FULL CODE. RECOMMENDATIONS AND DISCUSSION: This 64-year-old woman who presented with multiple complex medical issues, we recommend to continue the current medications, management and symptomatic treatment. Rule out myocardial infarction. Acute chronic insomnia protocol. Closely follow with Cardiology. I would also recommend a 2D echo with Doppler and as well as BNP also to rule out the possibility of any CHF. Otherwise, chest x-ray will be ordered. We will limit the fluids at this time. Otherwise, continue to monitor. The home medications will be resumed. Prognosis guarded because of multiple complex medical issues. Further recommendations to follow. A copy of dictation being forwarded to Dr. Abiel Alfred who is the primary physician. MMYESICA / ANDREA: [id number] /
[2019-10-06 22:47] LABS: Appearance,Urine Clear (Clear); Bilirubin,Urine Negative (Negative); Blood,Urine Negative (Negative); Color,Urine Light Yellow; Glucose,Urine (UA) Negative (Negative); Ketones,Urine Negative (Negative); Leukocyte Esterase,Urine Negative (Negative); Nitrite,Urine Negative (Negative); PH, Urine 7.5 (5.0-8.0); Protein,Urine Negative (Negative); Urobilinogen,Urine <2.0 mg/dL (<2.0)
[2019-10-06 22:57] LABS: Specific Gravity,Urine >1.050 (1.001-1.035)
[2019-10-07 03:46] LABS: Basophils % (A) 0 %; Eosinophils % (A) 0 %; HCT 42.1 % (34.0-46.0); HGB 14.1 gm/dL (11.4-16.0); Lymphocytes # (A) 0.9 k/uL (1.0-4.8); Lymphocytes % (A) 6 %; MCH 29.7 pg (25.0-35.0); MCHC 33.6 g/dL (31.0-37.0); MCV 88.5 fL (80.0-100.0); Mean Platelet Volume 8.4; Monocytes # (A) 0.2 k/uL (0-1.0); Monocytes % (A) 2 %; Neutrophils # (A) 14.6 k/uL (1.3-7.7); Neutrophils % (A) 92 %; Platelet Count 352 k/uL (150-450); RBC 4.76 m/uL (3.80-5.40); RDW 12.7 % (11.5-15.5); WBC 15.8 k/uL (3.8-10.6)
[2019-10-07 04:04] LABS: Calcium 9.8 mg/dL (8.4-10.2); Potassium 4.6 mmol/L (3.5-5.1)
--- NOTE | 2019-10-07 08:44 | XR ---
EXAMINATION TYPE: XR chest 1V portable DATE OF EXAM: 10/07/2019 Comparison: 10/06/2019 Clinical History: 64-year-old female CHF Findings: Heart normal size. Aorta and pulmonary vasculature within normal limits. Hazy peripheral lower lung d ensities related to overlying soft tissue. Some strandy atelectasis at the left base. Otherwise, no c onsolidation or pleural effusion. Impression: No acute cardiopulmonary process.
[2019-10-07] MEDS: PANTOPRAZOLE 40 MG/10 ML VIAL IVP SCH ×2 (08:54→19:55)
[2019-10-07] MEDS ORDERED: SODIUM CHLORIDE 0.9% 1,000 ML IV STA (10:54)
--- NOTE | 2019-10-07 11:07 | P.CRDCN ---
History of Present Illness History of present illness: HISTORY OF PRESENTING ILLNESS This is a pleasant 64-year-old female past medical history significant for gastroesophageal reflux disease and family history of premature coronary ar elizabeth disease her father having a massive heart attack and dying at the age of 36. She follows in the office with Dr. Nguyen. We have been asked to see in consultation for chest pain. She states specifically for the previous one week she has been experiencing a lot of discomfort in her chest. The symptoms started as a burning sensation in the epigastric region and radiate up the midsternal region. At times it wraps around her chest and feels like someone is squeezing her upper torso with discomfort in the left shoulder and the left neck. Her symptoms are also associated with exertional shortness of breath. She does have a significant history of GERD in the past and used to take Nexium twice a day per Dr. Aden. She states for the previous 4 months she has not been taking it and has been feeling fine up until one week ago. She has also noticed exertional shortness of breath has been going on since 2018. She has discussed this with Dr. Dr. Nguyen in the office and undergone a stress test. Per the patient to stress test was normal, however there was a mention of possible ischemia that could be related to breast tissue attenuation. The patient states she underwent cardiac catheterization approximately 25 years ago that was unremarkable for ischemia however she was told she has small arteries. DIAGNOSTICS EKG reveals sinus mechanism heart rate of 76 with poor R-wave progression, no acute ischemic changes. Chest xray negative for acute cardiopulmonary process. CT chest is negative for pulmonary embolism, pulmonary interstitial infiltrates are nonspecific, they appear new compared to computed tomography scan from June 2019. Thoracic aorta shows no evidence of aneurysm or dissection, ascending aorta measures 3.3 cm. Laboratory reviewed, WBC 15.8 up from 9.1 on admission however patient has been started on IV steroids, hemoglobin 14.1, platelets 352, d-dimer 0.24, sodium 138, potassium 4.6, creatinine 1.06 with a GFR of 56, magnesium 2.2, NT proBNP 229, LDL 133 and HDL 47. She takes no daily cardiac medications. REVIEW OF SYSTEMS At the time of my exam: CONSTITUTIONAL: Denies fever or chills. CARDIOVASCULAR: Denies chest pain, shortness of breath, orthopnea, PND or palpitations. RESPIRATORY: Denies cough. GASTROINTESTINAL: Denies abdominal pain, diarrhea, constipation, nausea or vomiting. MUSCULOSKELETAL: Denies myalgias. NEUROLOGIC: Denies numbness, tingling or weakness. ENDOCRINE: Denies fatigue, weight change, polydipsia or polyurina. GENITOURINARY: Denies burning, hematuria or urgency with micturation. HEMATOLOGIC: Denies history of anemia or bleeding. PHYSICAL EXAMINATION Blood pressure 100/59 heart rate 63 afebrile and maintaining oxygen saturation on room air. CONSTITUTIONAL: No apparent distress. HEENT: Head is normocephalic. Pupils are equal, round. Sclerae anicteric. Mucous membranes of the mouth are moist. No JVD. No carotid bruit. CHEST EXAMINATION: Lungs are clear to auscultation. No chest wall tenderness is noted on palpation or with deep breathing. HEART EXAMINATION: Regular rate and rhythm. S1, S2 heard. No murmurs, gallops or rub. ABDOMEN: Soft, nontender. Positive bowel sounds. EXTREMITIES: 2+ peripheral pulses, no lower extremity edema and no calf tenderness. NEUROLOGIC EXAMINATION: Patient is awake, alert and oriented x3. ASSESSMENT Chest pain, an acute coronary event has been ruled out. Chronic kidney disease Gastroesophageal reflux disease Family history of premature coronary artery disease PLAN An acute coronary event has been ruled out. We will obtain the stress test from the office for further review. Discussed with her the option of going home and seeing Dr. Nguyen in the office to set up further cardiac testing. Given her ongoing and persistent symptoms she is quite concerned about going home. She would prefer to have heart catheterization discussed the risk of worsening renal failure and she is agreeable to take this risk. NPO after midnight for possible catheterization in the morning. Thank you kindly for this consultation. Nurse Practitioner note has been reviewed, I agree with a documented findings and plan of care. Patient was seen and examined. Past Medical History Past Medical History: Deep Vein Thrombosis (DVT), Eye Disorder, GERD/Reflux, Thyroid Disorder Additional Past Medical History / Comment(s): occasional tachycardia, DVT-LEG , MACULAR DEGENERATION BILATERAL EYES, HYPOGLYCEMIA History of Any Multi-Drug Resistant Organisms: None Reported Past Surgical History: Breast Surgery, Heart Catheterization, Hernia Repair, Hy sterectomy, Tonsillectomy Additional Past Surgical History / Comment(s): Right breast cyst aspiration, excisional biopsy left breast, 2 excisional biopsies right breast. D&C X4, LAPAROSCOPIC EXAM, LAPAROTOMY-ECTOPIC PREG, RIGHT WRIST SURGERY, PAIN CLINIC INJECTIONS, INGUINAL AND FEMORAL HERNIA REPAIR, EGD,COLONOSCPY, PILONIDAL CYST SURGERY Past Anesthesia/Blood Transfusion Reactions: Previous Problems w/ Anesthesia, Motion Sickness, Postoperative Nausea & Vomiting (PONV) Past Psychological History: No Psychological Hx Reported Smoking Status: Never smoker Past Alcohol Use History: None Reported Past Drug Use History: None Reported - Past Family History Sister(s) Family Medical History: Cancer Additional Family Medical History / Comment(s): Sister SKIN CANCER-breast cancer/brain tumor Medications and Allergies Home Medications Medication Instructions Recorded Confirmed Type Esomeprazole Magnesium [NexIUM] 40 mg PO BID 04/01/17 10/06/19 History Estradiol [Climara 0.025 MG] 1 patch TRANSDERM Q14D 04/01/17 10/06/19 History Levothyroxine Sodium [Tirosint] 88 mcg PO HS 04/01/17 10/06/19 History Allergies Allergy/AdvReac Type Severity Reaction Status Date / Time adhesive tape Allergy BLISTERS, Verified 10/06/19 16:35 RED SKIN Iodinated Contrast Media Allergy Nausea & Verified 10/06/19 16:35 [Iodinated Contrast- Oral Vomiting, and IV Dye] SHAKING, POSS SOB meperidine HCl [From Demerol] Allergy Nausea & Verified 10/06/19 16:35 Vomiting methocarbamol [From Robaxin] Allergy Rash/Hives Verified 10/06/19 16:35 minocycline Allergy Anaphylaxis Verified 10/06/19 16:35 moxifloxacin [From Avelox] Allergy tendon Verified 10/06/19 16:35 problem Quinolones Allergy problem Verified 10/06/19 16:35 with tendon scopolamine Allergy Rapid Verified 10/06/19 16:35 Heart Rate Physical Exam Vitals: Vital Signs Temp Pulse Pulse Resp BP BP Pulse Ox 10/07/19 07:03 97.6 F 63 16 100/59 98 10/07/19 04:00 98.0 F 65 17 104/60 96 10/06/19 23:30 16 10/06/19 23:29 97.9 F 75 16 116/64 98 10/06/19 19:24 98.2 F 76 17 128/78 98 10/06/19 19:20 17 10/06/19 18:33 97.4 F L 70 11 L 119/73 93 L 10/06/19 18:00 70 11 L 119/73 10/06/19 17:00 86 14 119/77 93 L 10/06/19 15:00 73 13 123/71 99 10/06/19 14:28 75 17 99 10/06/19 14:15 97.4 F L 78 20 132/68 99 Intake and Output 10/06/19 10/07/19 10/07/19 21:59 06:59 14:59 Intake Total Balance Intake: Oral Other: Weight Results 10/07/19 03:14 10/07/19 03:14 Cardiac Enzymes 10/06/19 10/06/19 10/06/19 Range/Units 15:00 15:00 20:32 AST 20 (14-36) U/L Troponin I <0.012 <0.012 (0.000-0.034) ng/mL 10/07/19 Range/Units 03:14 AST (14-36) U/L Troponin I <0.012 (0.000-0.034) ng/mL Coagulation 10/06/19 Range/Units 15:00 PT 10.4 (9.0-12.0) sec APTT 24.1 (22.0-30.0) sec Lipids 10/07/19 Range/Units 03:14 Triglycerides 48 (<150) mg/dL Cholesterol 190 (<200) mg/dL HDL Cholesterol 47 (40-60) mg/dL CBC 10/06/19 10/07/19 Range/Units 15:00 03:14 WBC 9.1 15.8 H (3.8-10.6) k/uL RBC 4.53 4.76 (3.80-5.40) m/uL Hgb 13.5 14.1 (11.4-16.0) gm/dL Hct 39.7 42.1 (34.0-46.0) % Plt Count 376 352 (150-450) k/uL Comprehensive Metabolic Panel 10/06/19 10/07/19 Range/Units 15:00 03:14 Sodium 137 138 (137-145) mmol/L Potassium 3.9 4.6 (3.5-5.1) mmol/L Chloride 107 109 H (98-107) mmol/L Carbon Dioxide 23 18 L (22-30) mmol/L BUN 17 19 H (7-17) mg/dL Creatinine 1.05 H 1.06 H (0.52-1.04) mg/dL Glucose 114 H 135 H (74-99) mg/dL Calcium 9.3 9.8 (8.4-10.2) mg/dL AST 20 (14-36) U/L ALT 15 (4-34) U/L Alkaline Phosphatase 60 (38-126) U/L Total Protein 6.8 (6.3-8.2) g/dL Albumin 4.1 (3.5-5.0) g/dL Current Medications Generic Name Dose Route Start Last Admin Trade Name Freq PRN Reason Stop Dose Admin Acetaminophen 500 mg 10/06/19 18:40 Tylenol Tab PO Q6HR PRN Fever and/ or Pain Alprazolam 0.25 mg 10/06/19 18:40 Xanax PO TID PRN Anxiety Levothyroxine Sodium 88 mcg 10/06/19 21:00 10/06/19 20:39 Synthroid PO 88 mcg HS NEREYDA Administration Naloxone HCl 0.2 mg 10/06/19 17:38 Narcan IV Q2M PRN Opioid Reversal Non-Formulary Medication 1 patch 10/19/19 06:00 Estradiol [Climara 0.025 Mg] TOPICAL Q14D NEREYDA Pantoprazole Sodium 40 mg 10/06/19 18:40 10/06/19 20:39 Protonix IVP 40 mg BID NEREYDA Administration Temazepam 15 mg 10/06/19 18:40 Restoril PO HS PRN Insomnia Intake and Output 10/06/19 10/07/19 10/07/19 21:59 06:59 14:59 Intake Total Balance Intake: Oral Other: Weight 10/07/19 03:14 10/07/19 03:14
[2019-10-07] MEDS ORDERED: ASPIRIN 81 MG PO SCH (11:15)
[2019-10-07] MEDS ORDERED: NITROGLYCERIN SL TABS 0.4 MG TAB SUBLINGUAL PRN (11:58)
[2019-10-07] MEDS ORDERED: SODIUM CHLORIDE 0.9% 1,000 ML in EMPTY BAG 1 BAG IV ONE (11:58)
--- NOTE | 2019-10-07 19:00 | PN ---
PROGRESS NOTE DATE OF SERVICE: 10/07/2019 This 67-year-old woman was admitted with chest pain, also had probably some features of CHF also. Some increased bronchovascular markings and the patient being closely monitored. Cardiology planning possible cardiac catheterization tomorrow. No chest pain. No palpitations. PHYSICAL EXAMINATION: Alert and oriented times three. Pulse 85. Blood pressure 123/64, respirations 18. Temp 97.2, pulse ox 98% on room air. HEENT: Conjunctivae normal. NECK: No JVD. CARDIOVASCULAR: S1, S2 normal. RESPIRATORY: Breath sounds diminished in the bases. A few scattered rhonchi. ABDOMEN is soft, nontender. LEGS are no edema, no swelling. CENTRAL NERVOUS SYSTEM: No focal deficits. LABS: WBC 15.8, sodium 130, potassium 4.6. Creatinine is 1.06, LDL is 133. ASSESSMENT: 1. Chest discomfort, possible unstable angina. 2. Rule out congestive heart failure. 3. Increased creatinine with possible mild acute renal failure. 4. History of chronic kidney disease. 5. Increased random blood sugar. 6. History of deep vein thrombosis. 7. History of gastroesophageal reflux disease. 8. History of tachycardia. 9. History of macular degeneration. 10.History of hypoglycemia. 11.History of cardiac catheterization remotely. 12.History of laparotomy for ectopic . 13.Increased WBC possibly reactive. 14.FULL CODE. RECOMMENDATIONS AND DISCUSSION: This 64-year-old woman who presented with multiple complex medical issues, we will monitor the patient closely, continue the current medications, management and symptomatic treatment. Cardiac catheterization per cardiology. Repeat labs. Continue the IV fluids cautiously. Monitor creatinine closely. The patient did have history of previous kidney disease. Guarded prognosis. Further recommendations to follow. Dr. Alfred will follow the patient. MMODL / IJN: [id number] /
[2019-10-07] MEDS: LEVOTHYROXINE 88 MCG TAB PO SCH (19:55)
[2019-10-08] MEDS ORDERED: ASPIRIN 325 MG TAB PO ONE (06:00)
[2019-10-08] MEDS ORDERED: ATORVASTATIN 80 MG TAB PO ONE (06:00)
[2019-10-08] MEDS: PANTOPRAZOLE 40 MG/10 ML VIAL IVP SCH (06:05)
[2019-10-08] MEDS ORDERED: methylPREDNISolone SOD SUCCI 125 MG/2 ML VIAL IV STA (07:43)
[2019-10-08] MEDS ORDERED: diphenhydrAMINE 50 MG/ML 1 ML VIAL IVP STA (07:43)
[2019-10-08] MEDS ORDERED: IV FLUID CONTINUATION 1,000 ML IV ONE (08:08)
[2019-10-08] MEDS: MIDAZOLAM 2 MG/2 ML VIAL IV ONE ×2 (08:14→08:24)
[2019-10-08] MEDS ORDERED: LIDOCAINE 1% INJ 10MG/ML (20 ML MDV) SQ ONE (08:19)
[2019-10-08] MEDS ORDERED: VERAPAMIL SYRINGE (5 MG/10 ML) INTRAARTER ONE ×2 (08:19→08:20)
[2019-10-08] MEDS ORDERED: IOPAMIDOL-370 125ML BTL INJ ONE (08:28)
[2019-10-08] MEDS ORDERED: NITROGLYCERIN 1000MCG/10ML SYRINGE INTRAARTER ONE (08:28)
--- NOTE | 2019-10-08 08:41 | P.CARDCATH ---
Date of Procedure: 10/08/19 Preoperative Diagnosis: Unstable angina Postoperative Diagnosis: Normal coronary arteries Procedure(s) Performed: Left heart catheterization without left ventriculography Description of Procedure: HISTORY: This is a 64-year-old female with history family history of ischemic heart disease and also hiatal hernia was admitted to the hospital with recurrent chest pain and left arm pain and neck pain. Her cardiac enzymes are negative and EKGs were normal. Patient has strong family history of ischemic heart disease. Patient preferred to have a cardiac catheterization for definitive diagnosis CONSENT:I have discussed the risks, benefits and alternative therapies for the above-mentioned procedure and for both sedation/analgesia as well as necessary blood product administration, if indicated, as they pertain to this patient. The patient has indicated understanding and acceptance of the risks and procedures discussed. PROCEDURE: Patient was brought to the lab in a fasting state. Patient was given some IV sedation. The right wrist is infiltrated with lidocaine and right radial artery was entered using Seldinger technique. A 6-Turkish catheter was left in place and selective coronary arteriography was performed. Patient tolerated the procedure well. TR band was applied for hemostasis. No immediate complications were noted and patient was transferred to [facility] in a stable condition Conscious Sedation: Versed 2mg Fentanyl 0 g Duration 16minutes HEMODYNAMICS: The aortic pressure is about 120/70. The left ventricle end- diastolic pressure was not measured SELECTIVE CORONARY ARTERIOGRAPHY: LEFT MAIN: This is a normal in length and free of occlusive disease THE LEFT ANTERIOR DESCENDING CORONARY ARTERY:. This is a moderate caliber vessel becomes small in caliber in the distal distribution after giving rise to good-sized septal and diagonal branches. The vessel is free of occlusive disease THE LEFT CIRCUMFLEX AND IS CORONARY ARTERY:. This is a moderate caliber vessel giving rise to a right to PLV branches and AV groove segment. Free of any occlusive disease. Nondominant in distribution THE RIGHT CORONARY ARTERY:. This is a good caliber vessel and dominant in distribution, giving rise to PDA and PLV. Free of occlusive disease LEFT VENTRICULOGRAPHY:. Not performed FINAL IMPRESSION:, Normal coronary arteries PLAN: Risk factor modification and medical therapy PROGNOSIS:. Fair
[2019-10-08 09:07] VITALS: PULSE 71
[2019-10-08 11:18] VITALS: RESP 18; TEMP 98
[2019-10-08 11:25] LABS: Basophils % (A) 0 %; Eosinophils # (A) 0.1 k/uL (0-0.7); Eosinophils % (A) 1 %; HCT 42.2 % (34.0-46.0); HGB 14.1 gm/dL (11.4-16.0); Lymphocytes # (A) 1.4 k/uL (1.0-4.8); Lymphocytes % (A) 13 %; MCH 29.8 pg (25.0-35.0); MCHC 33.3 g/dL (31.0-37.0); MCV 89.3 fL (80.0-100.0); Mean Platelet Volume 9.3; Monocytes # (A) 0.2 k/uL (0-1.0); Monocytes % (A) 2 %; Neutrophils # (A) 8.7 k/uL (1.3-7.7); Neutrophils % (A) 83 %; Platelet Count 339 k/uL (150-450); RBC 4.72 m/uL (3.80-5.40); RDW 13.1 % (11.5-15.5); WBC 10.5 k/uL (3.8-10.6)
[2019-10-08 11:35] LABS: Calcium 9.1 mg/dL (8.4-10.2); Potassium 4.4 mmol/L (3.5-5.1)
--- NOTE | 2019-10-08 13:02 | P.DS ---
Providers Date of admission: 10/06/19 17:38 Expected date of discharge: 10/08/19 Attending physician: Abiel Alfred Consults: 10/06/19 17:39 Consult Physician Urgent Consulting Provider: [facility] Consult Reason/Comments: acute chest pain Do you want consulting provider notified?: Yes Primary care physician: Abiel Alfred [facility] Course: This 64-year-old female presented to the emergency department with some chest discomfort she was seen by cardiology and had a cardiac catheterization today which was found to be clear. She is requesting to go home if she feels that chest pain has improved. Assessment Chest discomfort cardiac catheterization Clear History of DVT History of GERD History of hypoglycemia History of previous cardiac catheterization Plan: Discharge home follow-up with Dr. Abiel Alfred one to 2 days Follow-up cardiology as scheduled Patient Condition at Discharge: Stable Plan - Discharge Summary Discharge Rx Participant: No New Discharge Prescriptions: Continue Estradiol [Climara 0.025 MG] 1 patch TRANSDERM Q14D Esomeprazole Magnesium [NexIUM] 40 mg PO BID Levothyroxine Sodium [Tirosint] 88 mcg PO HS Discharge Medication List Esomeprazole Magnesium [NexIUM] 40 mg PO BID 04/01/17 [History] Estradiol [Climara 0.025 MG] 1 patch TRANSDERM Q14D 04/01/17 [History] Levothyroxine Sodium [Tirosint] 88 mcg PO HS 04/01/17 [History] Follow up Appointment(s)/Referral(s): Abiel Alfred MD [Primary Care Provider] - 1-2 days Quincy Nguyen MD [STAFF PHYSICIAN] - 10/15/19 10:00 am
[2019-10-08 13:15] VITALS: BP 110/62
[2019-10-08] MEDS ORDERED: PANTOPRAZOLE 40 MG TABLET PO SCH (17:30)
[2019-10-09] MEDS ORDERED: ASPIRIN 81 MG PO SCH (09:00)
--- NOTE | 2019-10-09 10:48 | ECHOF ---
Referral Reason:chf MEASUREMENTS -------- HEIGHT: 170.2 cm WEIGHT: 83.5 kg BP: 92/54 RVIDd: 3.1 cm (< 3.3) IVSd: 1.0 cm (0.6 - 1.1) LVIDd: 4.3 cm (3.9 - 5.3) LVPWd: 1.0 cm (0.6 - 1.1) IVSs: 1.4 cm LVIDs: 2.5 cm LVPWs: 1.2 cm LAESV Index (A-L): 31.77 ml/m Ao Diam: 2.7 cm (2.0 - 3.7) AV Cusp: 1.7 cm (1.5 - 2.6) MV EXCURSION: 14.317 mm (> 18.000) MV EF SLOPE: 77 mm/s (70 - 150) EPSS: 0.4 cm MV E Patrick: 0.92 m/s MV DecT: 188 ms MV A Patrick: 0.91 m/s MV E/A Ratio: 1.01 RAP: 5.00 mmHg RVSP: 23.40 mmHg FINDINGS -------- Sinus rhythm. This was a technically adequate study. The left ventricular size is normal. Left ventricular wall thickness is normal. Overall left vent ricular systolic function is normal with, an EF between 55 - 60 %. The diastolic filling pattern is normal for the age of the patient 13.11. The right ventricle is normal in size. LA is midly dilated 29-33ml/m2. The right atrial size is normal. Interatrial and interventricular septum intact. The aortic valve is trileaflet and appears structurally normal. There is no evidence of aortic regu rgitation. There is no evidence of aortic stenosis. Mild mitral regurgitation is present. Mild tricuspid regurgitation present. There is no evidence of pulmonary hypertension. The right v entricular systolic pressure, as measured by Doppler, is 23.40mmHg. Trace/mild (physiologic) pulmonic regurgitation. The aortic root size is normal. The inferior vena cava is mildly dilated. There is no pericardial effusion. CONCLUSIONS -------- 1. Sinus rhythm. 2. This was a technically adequate study. 3. The left ventricular size is normal. 4. Left ventricular wall thickness is normal. 5. Overall left ventricular systolic function is normal with, an EF between 55 - 60 %. 6. The diastolic filling pattern is normal for the age of the patient 13.11 7. The right ventricle is normal in size. 8. LA is midly dilated 29-33ml/m2. 9. The right atrial size is normal. 10. Interatrial and interventricular septum intact. 11. The aortic valve is trileaflet and appears structurally normal. 12. There is no evidence of aortic regurgitation. 13. There is no evidence of aortic stenosis. 14. Mild mitral regurgitation is present. 15. Mild tricuspid regurgitation present. 16. There is no evidence of pulmonary hypertension. 17. The right ventricular systolic pressure, as measured by Doppler, is 23.40mmHg. 18. Trace/mild (physiologic) pulmonic regurgitation. 19. The aortic root size is normal. 20. The inferior vena cava is mildly dilated. 21. There is no pericardial effusion. CROSSING GUARD: Jasmyne Guillermo RDCS
[2019-10-19] MEDS ORDERED: ESTRADIOL TOPICAL SCH (06:00)
== END 2019-10-08 15:57 ==
LOC: EC 14:13 → 1SOBS 17:38
PROVIDERS: ADMIT Family Medicine; ATTEND Family Medicine
DX: R07.9 Chest pain, unspecified (principal); M79.602 Pain in left arm; M54.2 Cervicalgia; N18.9 Chronic kidney disease, unspecified; E03.9 Hypothyroidism, unspecified; K21.9 Gastro-esophageal reflux disease without esophagitis; Z86.718 Personal history of other venous thrombosis and embolism; H35.30 Unspecified macular degeneration; M19.90 Unspecified osteoarthritis, unspecified site; I08.1 Rheumatic disorders of both mitral and tricuspid valves; Z90.710 Acquired absence of both cervix and uterus; Z90.89 Acquired absence of other organs; Z79.890 Hormone replacement therapy; Z79.899 Other long term (current) drug therapy; Z82.49 Family history of ischemic heart disease and other diseases of the circulatory system; Z80.3 Family history of malignant neoplasm of breast; Z80.8 Family history of malignant neoplasm of other organs or systems; Z91.048 Other nonmedicinal substance allergy status; Z91.041 Radiographic dye allergy status; Z88.5 Allergy status to narcotic agent; Z88.1 Allergy status to other antibiotic agents; Z88.8 Allergy status to other drugs, medicaments and biological substances
CPT/HCPCS: 93005 ×2; 96375 ×2; 96376 ×2; 96374; 99285; 36415; 93306; 93454; 85379; 83880; 80061; 80053; 80048 ×2; 83690; 83735; 84484 ×2; 85025 ×3; 85610; 85730; 81003; 71045 ×2; 71275; G0378 ×3; C1769; C1894; J2250; J1200 ×2; J2930 ×2; J2001; J1644; C9113 ×3; Q9967 ×2

== ENCOUNTER → 2020-01-03 | Outpatient (CLI) | payer BC ==
--- NOTE | 2020-01-03 10:18 | CT ---
EXAMINATION TYPE: CT chest wo con DATE OF EXAM: 01/03/2020 COMPARISON: CTA chest October 06, 2019 HISTORY: shortness of breath CT DLP: 665.1 mGycm. Automated Exposure Control for Dose Reduction was Utilized. TECHNIQUE: CT scan of the thorax is performed without IV contrast. High resolution protocol with 1 m m sequences obtained at 10 mm intervals in both supine and prone technique. FINDINGS: LUNGS: There is no significant peripheral reticulation and/or fibrotic change throughout both lungs. Findings correlate with prior CTs. No pleural effusion is evident. No suspicious bronchiectasis. No p ulmonary masses. MEDIASTINUM: Lack of IV contrast is noted to limit evaluation for mediastinal and especially hilar ad enopathy. There are no definitive greater than 1 cm hilar or mediastinal lymph nodes. No significan t pericardial effusion is seen. Heart size upper limits of normal. OTHER: No additional significant abnormality is seen. IMPRESSION: No significant acute or chronic pulmonary process on current study.
[2020-01-03 10:33] LABS: T4, Free (Free Thyroxine) 1.48 ng/dL (0.78-2.19)
[2020-01-03 18:14] LABS: C Reactive Protein, High Sens 4.25 mg/L (0.000-3.000)
== END | disposition home or self-care (01) ==
LOC: RADCTMAIN 09:14
PROVIDERS: ATTEND Internal Medicine Critical Care Medicine
DX: R06.02 Shortness of breath (principal); Z88.1 Allergy status to other antibiotic agents; Z88.5 Allergy status to narcotic agent; Z88.3 Allergy status to other anti-infective agents; R06.00 Dyspnea, unspecified
CPT/HCPCS: 36415; 71250; 82164; 82785; 84439; 84443; 84481; 85652; 86141

== ENCOUNTER → 2020-01-07 | Outpatient (CLI) | payer BC | END | disposition home or self-care (01) | LOC: CPPFTMAIN 07:31 | PROVIDERS: ATTEND Internal Medicine Critical Care Medicine | DX: R94.2 Abnormal results of pulmonary function studies (principal) | CPT/HCPCS: 94060; 94726; 94729 ==

== ENCOUNTER → 2020-01-11 | Outpatient (CLI) | payer BC ==
[2020-01-11 15:09] LABS: Basophils # (A) 0.1 k/uL (0-0.2); Basophils % (A) 1 %; Eosinophils # (A) 0.1 k/uL (0-0.7); Eosinophils % (A) 2 %; HCT 42.3 % (34.0-46.0); HGB 14.2 gm/dL (11.4-16.0); Lymphocytes # (A) 2.4 k/uL (1.0-4.8); Lymphocytes % (A) 32 %; MCH 30.6 pg (25.0-35.0); MCHC 33.6 g/dL (31.0-37.0); MCV 91.2 fL (80.0-100.0); Mean Platelet Volume 8.3; Monocytes # (A) 0.5 k/uL (0-1.0); Monocytes % (A) 6 %; Neutrophils # (A) 4.4 k/uL (1.3-7.7); Neutrophils % (A) 58 %; Platelet Count 363 k/uL (150-450); RBC 4.65 m/uL (3.80-5.40); RDW 12.9 % (11.5-15.5); WBC 7.6 k/uL (3.8-10.6)
[2020-01-12 00:05] LABS: African American GFR (CKD) 61.9 (60.0-200.0); Albumin 4.6 g/dL (3.80-4.90); Albumin/Globulin Ratio 2.19 (1.60-3.17); BUN/Creat Ratio 21.82 Ratio (12.00-20.00); Calcium 9.7 mg/dL (8.7-10.3); Globulin 2.1 g/dL (1.6-3.3); Non-African American GFR(CKD) 53.4 (60.0-200.0); Potassium 3.9 mmol/L (3.5-5.5); Total Bilirubin 0.5 mg/dL (0.2-1.2); Total Protein 6.7 g/dL (6.2-8.2)
== END | disposition home or self-care (01) ==
LOC: LABWHC1 14:19
PROVIDERS: ATTEND Internal Medicine Critical Care Medicine
DX: R06.00 Dyspnea, unspecified (principal)
CPT/HCPCS: 36415; 80053; 82550; 85025

== ENCOUNTER 2020-01-30 06:19 | Day surgery (SDC) | payer BC ==
[2020-01-29 09:42] VITALS: BMI 28.4
[~2020-01-30 06:19] MED LIST changes: -DEXAMETHASONE SOD PHOSPHATE 10 MG/ML 1 ML VIAL IV ONE; -LIDOCAINE 1% 20 ML VIAL (10MG/ML) FOR IV START INTRADERMA PRN; -MIDAZOLAM 2 MG/2 ML VIAL IV PRN; -ONDANSETRON 4 MG/2 ML VIAL IVP ONE; -ceFAZolin 1,000 MG in DEXTROSE/WATER 1 50ML.BAG IVPB ONE; -ceFAZolin IN SWFI 2 GM/20 ML SYRINGE IVP ONE; -fentaNYL (PF) 50 MCG/ML 2 ML AMP IV PRN; -metroNIDAZOLE-NS PMX 500 MG in SALINE 1 100ML.BAG IVPB ONE
[2020-01-30 06:53] VITALS: TEMP 97.7
[2020-01-30] MEDS ORDERED: LIDOCAINE 1% (10MG/ML) FOR IV START SQ ONE (06:54)
[2020-01-30 07:01] LABS: Glucose,Whole Blood 101 mg/dL (75-99)
[2020-01-30] MEDS ORDERED: LIDOCAINE 1% INJ 10MG/ML (20 ML MDV) ONE (07:09)
[2020-01-30] MEDS ORDERED: PROPOFOL 10 MG/ML 20 ML VIAL IV ONE (07:09)
--- NOTE | 2020-01-30 07:26 | P.PCN ---
Date of Procedure: 01/30/20 Procedure(s) Performed: BRIEF HISTORY: Patient is a 64-year-old, pleasant, 64-year-old white female scheduled for an upper endoscopy as a part of evaluation of long-standing history of gastroesophageal reflux disease. In September of this year she had atypical chest pain during cardiac catheterization which was reported as normal. She continued to have chest pain and epigastric pain and hence was started on Nexium 40 mg twice daily. Her symptoms are gradually improving.. PROCEDURE PERFORMED: Esophagogastroduodenoscopy With biopsy PREOPERATIVE DIAGNOSIS: Gastroesophageal reflux symptoms. IV sedation per anesthesia. PROCEDURE: After informed consent was obtained, the patient was brought into [facility] endoscopy unit. IV sedation was administered by Anesthesia under continuous monitoring. Initially the Olympus GIF-140 video endoscope was inserted into the mouth. Esophagus intubated without any difficulty. It was gradually advanced into the stomach and duodenum and carefully examined. The bulb and the second part of the duodenum appeared normal. The scope at this time was withdrawn to the stomach, adequately insufflated with air, and upon careful examination, mucosa of the antrum had mild gastritis and multiple small gastric polyps which were biopsied. The body, cardia and the fundus appeared normal. The scope was then withdrawn into the esophagus. Small sliding Hiatal hernia noted. They revealed Vincenzo erosions at the site of diaphragmatic impression hiatal hernia. The GE junction was located at 39 cm from the incisors. The esophagus appeared normal. There were no erosions or ulcerations seen and the patient tolerated the procedure well. IMPRESSION: 1. Small hiatal hernia with Vincenzo erosions. 2. Multiple small gastric polyps 3. No evidence of esophagitis or Minaya's esophagus. RECOMMENDATIONS: The findings of this examination were discussed with the patient as well as a family. She was advised to follow with the biopsy results. She can decrease the Nexium to 40 mg daily and follow antireflux measures. She'll be seen in office in 6 weeks
[2020-01-30 07:31] VITALS: RESP 16
[2020-01-30 08:02] VITALS: BP 99/70; PULSE 62
== END 2020-01-30 08:15 | disposition home or self-care (01) ==
LOC: ORWHC2ENDO 06:19
PROVIDERS: ATTEND Internal Medicine Gastroenterology
DX: K21.0 Gastro-esophageal reflux disease with esophagitis (principal); K31.7 Polyp of stomach and duodenum; K44.9 Diaphragmatic hernia without obstruction or gangrene; K21.9 Gastro-esophageal reflux disease without esophagitis; K31.9 Disease of stomach and duodenum, unspecified; E07.9 Disorder of thyroid, unspecified; Z91.041 Radiographic dye allergy status; Z88.1 Allergy status to other antibiotic agents; Z79.890 Hormone replacement therapy; Z79.899 Other long term (current) drug therapy; Z90.710 Acquired absence of both cervix and uterus; Z98.890 Other specified postprocedural states; Z86.79 Personal history of other diseases of the circulatory system
CPT/HCPCS: 88305; 43239; J2001; J2704

== ENCOUNTER → 2020-04-04 | Outpatient (CLI) | payer BC ==
--- NOTE | 2020-04-04 11:56 | MM ---
Reason for exam: additional evaluation requested from prior study. Last mammogram was performed 1 year and 11 months ago. History: Patient is postmenopausal and is nulliparous. Family history of breast cancer in sister and breast cancer in maternal aunt at age 50. Benign US biopsy breast VAD RT of the right breast, April 05, 2017. Benign right breast aspiration of the right breast, September 10, 2011. Excisional biopsy of the left breast. 2 excisional biopsies of the right breast. Taking estrogen for 17 years 1 month. Physical Findings: Nurse did not find any significant physical abnormalities on exam. MG 3D Diag Mammo W/Cad JOE Bilateral CC and MLO view(s) were taken. Prior study comparison: May 16, 2018, bilateral MG 3d diag mammo w/cad JOE. October 07, 2017, right breast MG 3d diag mammo w/cad RT. March 31, 2017, bilateral MG 3d diag mammo w/cad JOE. December 01, 2015, bilateral MG 3d diag mammo w/cad JOE. The breast tissue is heterogeneously dense. This may lower the sensitivity of mammography. Previous mammotome biopsy in the right breast x 2. Asymmetric densities are all stable from prior. No significant new findings when compared with previous films. These results were verbally communicated with the patient and result sheet given to the patient on 04/04/20. ASSESSMENT: Benign, BI-RAD 2 RECOMMENDATION: Routine screening mammogram of both breasts in 1 year.
== END | disposition home or self-care (01) ==
LOC: RADMAMWWP 10:18
PROVIDERS: ATTEND Surgery
DX: R92.8 Other abnormal and inconclusive findings on diagnostic imaging of breast (principal)
CPT/HCPCS: 77062; 77066

== ENCOUNTER → 2020-08-04 | Outpatient (CLI) | payer BC ==
[2020-08-04 10:26] LABS: African American GFR (CKD) 68.9 (60.0-200.0); Anion Gap 7.7 mmol/L (4.00-12.00); Calcium 9.2 mg/dL (8.7-10.3); Carbon Dioxide 24.3 mmol/L (21.6-31.8); Non-African American GFR(CKD) 59.5 (60.0-200.0); Potassium 4.2 mmol/L (3.5-5.5)
== END | disposition home or self-care (01) ==
LOC: LABWHC1 07:22
PROVIDERS: ATTEND Family Medicine
DX: I42.9 Cardiomyopathy, unspecified (principal)
CPT/HCPCS: 36415; 80048; 86769

== ENCOUNTER → 2020-08-07 | Outpatient (CLI) | payer BC ==
--- NOTE | 2020-08-07 08:50 | US ---
EXAMINATION TYPE: US kidneys/renal and bladder DATE OF EXAM: 08/07/2020 COMPARISON: NONE CLINICAL HISTORY: N28.9 Disorder of kidney ureter. Intermittent left flank pain EXAM MEASUREMENTS: Right Kidney: 9.2 x 4.2 x 4.5 cm Left Kidney: 9.8 x 4.5 x 4.2 cm Right Kidney: no hydronephrosis or masses seen Left Kidney: no hydronephrosis or masses seen Bladder: wnl Bilateral Jets seen: yes IMPRESSION: 1. Normal renal ultrasound
== END | disposition home or self-care (01) ==
LOC: RADUSWWP 08:18
PROVIDERS: ATTEND Family Medicine
DX: N28.9 Disorder of kidney and ureter, unspecified (principal)
CPT/HCPCS: 76770

== ENCOUNTER → 2020-12-16 | Outpatient (CLI) | payer BC ==
[2020-12-16 16:30] LABS: Appearance,Urine Clear (Clear); Bilirubin,Urine Negative (Negative); Blood,Urine Negative (Negative); Color,Urine Colorless; Glucose,Urine (UA) Negative (Negative); Ketones,Urine Negative (Negative); Leukocyte Esterase,Urine Negative (Negative); Nitrite,Urine Negative (Negative); Protein,Urine Negative (Negative); Urobilinogen,Urine <2.0 mg/dL (<2.0)
[2020-12-16 16:44] LABS: Specific Gravity,Urine 1.002 (1.001-1.035)
[2020-12-16 17:15] LABS: Creatinine,Urine Random 8.1 mg/dL; Protein/Creatinine Ratio,Urine 1.728
[2020-12-16 23:47] LABS: Basophils # (A) 0.05 X 10*3/uL (0.00-0.10); Basophils % (A) 0.5 %; HCT 41.6 % (37.2-46.3); HGB 13.6 g/dL (12.0-15.0); Lymphocytes # (A) 2.34 X 10*3/uL (0.90-5.00); Lymphocytes % (A) 23.4 %; MCH 29.5 pg (27.0-32.0); MCHC 32.7 g/dL (32.0-37.0); MCV 90.2 fL (80.0-97.0); Mean Platelet Volume 10.5 fL (9.5-12.2); Monocytes # (A) 0.88 X 10*3/uL (0.20-1.00); Monocytes % (A) 8.8 %; Neutrophils # (A) 6.59 X 10*3/uL (1.80-7.70); Neutrophils % (A) 66.1 %; Platelet Count 369 X 10*3/uL (140-440); RBC 4.61 X 10*6/uL (4.10-5.20); RDW 13.1 % (11.5-14.5); WBC 9.98 X 10*3/uL (4.50-10.00)
[2020-12-17 04:02] LABS: % Iron Saturation 23.24 (12.00-45.00); African American GFR (CKD) 68.9 (60.0-200.0); Albumin 4.5 g/dL (3.80-4.90); Anion Gap 11.4 mmol/L (4.00-12.00); Calcium 9.5 mg/dL (8.7-10.3); Carbon Dioxide 21.6 mmol/L (21.6-31.8); Magnesium 2.1 mg/dL (1.5-2.4); Non-African American GFR(CKD) 59.5 (60.0-200.0); Potassium 3.9 mmol/L (3.5-5.5); Uric Acid 6.6 mg/dL (2.9-7.7)
[2020-12-17 04:09] LABS: Ferritin 120.6 ng/mL (10.0-291.0)
== END | disposition home or self-care (01) ==
LOC: LABWHC1 13:49
PROVIDERS: ATTEND Internal Medicine Nephrology
DX: N17.9 Acute kidney failure, unspecified (principal)
CPT/HCPCS: 36415; 80048; 81003; 82040; 82306; 82570; 82728; 83540; 83550; 83735; 83970; 84100; 84156; 84550; 85025

== ENCOUNTER → 2021-06-03 | Outpatient (CLI) | payer MEDICARE, BC ==
--- NOTE | 2021-06-03 11:26 | MM ---
Reason for exam: additional evaluation requested from prior study. Last mammogram was performed 1 year and 2 months ago. History: Patient is postmenopausal and is nulliparous. Family history of breast cancer in maternal aunt at age 50 and breast cancer in sister. Benign US biopsy breast VAD RT of the right breast, April 05, 2017. Benign right breast aspiration of the right breast, September 10, 2011. Excisional biopsy of the left breast. 2 excisional biopsies of the right breast. Taking estrogen for 17 years 1 month. Physical Findings: Nurse Summary: 1 x 0.5cm nodule in the right breast at 4 o'clock (nurse ts). MG 3D Diag Mammo W/Cad JOE Bilateral CC and MLO view(s) were taken. ML and CCRM view(s) were taken of the right breast. Prior study comparison: April 04, 2020, bilateral MG 3d diag mammo w/cad JOE. May 16, 2018, bilateral MG 3d diag mammo w/cad JOE. The breast tissue is heterogeneously dense. This may lower the sensitivity of mammography. Previous mammotome biopsy in the right breast x 2. There is chronic nodularity bilaterally. 7mm circumscribed nodule lateral posterior right breast. Nurse palpated marker 4 o'clock. This seems to roll laterally on medial roll suggesting lower outer quadrant. Ultrasound recommended. These results were verbally communicated with the patient and result sheet given to the patient on 06/03/21. ASSESSMENT: Incomplete: need additional imaging evaluation, BI-RAD 0 RECOMMENDATION: Ultrasound of the right breast.
--- NOTE | 2021-06-03 11:30 | USB ---
Reason for exam: additional evaluation requested from abnormal screening. History: Patient is postmenopausal and is nulliparous. Family history of breast cancer in maternal aunt at age 50 and breast cancer in sister. Benign US biopsy breast VAD RT of the right breast, April 05, 2017. Benign right breast aspiration of the right breast, September 10, 2011. Excisional biopsy of the left breast. 2 excisional biopsies of the right breast. Taking estrogen for 17 years 1 month. US Breast RT Right complete breast ultrasound includes all four quadrants, the retroareolar region and axilla. Finding demonstrates a 0.3 x 0.3 x 0.2cm oval lesion too small to characterize at 7 o'clock, a 0.5 x 0.3 x 0.3cm oval, cystic lesion at 8 o'clock, duct ectasia at 9 o'clock, duct ectasia at 10 o'clock, a 0.5 x 0.5 x 0.5cm oval, cystic lesion at 10 o'clock, a 0.6 x 0.4 x 0.3cm oval, hypoechoic lesion at 10 o'clock, possible collapsed cyst, 6 month follow up recommended and a 0.7 x 0.9 x 0.2cm clustered, cystic area at 11 o'clock, 6 month follow up recommended. These results were verbally communicated with the patient and result sheet given to the patient on 06/03/21. ASSESSMENT: Probably benign, BI-RAD 3 RECOMMENDATION: Follow-up diagnostic mammogram and ultrasound of the right breast in 6 months.
== END | disposition home or self-care (01) ==
LOC: RADMAMWWP 07:48
PROVIDERS: ATTEND Obstetrics & Gynecology
DX: N63.14 Unspecified lump in the right breast, lower inner quadrant (principal); N64.89 Other specified disorders of breast
CPT/HCPCS: 77066; 76641; G0279; 77062

== ENCOUNTER → 2021-06-03 | Outpatient (CLI) | payer MEDICARE, BC ==
--- NOTE | 2021-06-03 13:34 | US ---
EXAMINATION TYPE: US thyroid st tissue head/neck DATE OF EXAM: 06/03/2021 COMPARISON: NONE CLINICAL HISTORY: 66-year-old female E03.8 Other specified hypothyroidism. Hyperparathyroidism; takes thyroid medication TECHNIQUE: Multiple sonographic images of the thyroid gland are obtained. FINDINGS: GLAND SIZE: Right Lobe: 2.6 x 0.9 x 1.1 cm Overall Parenchyma: heterogenous Left Lobe: 3.1 x 1.0 x 0.8 cm Overall Parenchyma: heterogeneous Isthmus Thickness: 0.2 cm NODULES RIGHT: # of nodules measured on right: 0 LEFT: # of nodules measured on left: 0 ISTHMUS: # of nodules measured in the isthmus: 0 Bilateral neck scanned: 2 nonenlarged lymph nodes seen superior to right thyroid with larger node = 0 .9 x 0.7 x 0.3cm. No abnormal cortical thickening or effacement of the fatty hilum. IMPRESSION: Small and heterogeneous thyroid gland suggests chronic hypothyroidism. No discrete nodules.
== END | disposition home or self-care (01) ==
LOC: RADUSWWP 08:27
PROVIDERS: ATTEND Internal Medicine Endocrinology, Diabetes & Metabolism
DX: E03.8 Other specified hypothyroidism (principal)
CPT/HCPCS: 76536

== ENCOUNTER → 2021-09-18 | Outpatient (CLI) | payer MEDICARE, BC ==
--- NOTE | 2021-09-18 10:49 | BD ---
EXAMINATION TYPE: Axial Bone Density DATE OF EXAM: 09/18/2021 COMPARISON: NONE CLINICAL HISTORY: Height: 66 IN Weight: 184 LBS FRAX RISK QUESTIONS: Secondary Osteoporosis: 3. Menopause before 45: TOTAL HYST AGE 32 RISK FACTORS HISTORY OF: History of Wrist Fracture: RT WRIST AGE 46 Surgery to Wrist (right): YES AGE 46 Active: YES Diet low in dairy products/other sources of calcium: YES Postmenopausal woman: TOTAL HYST AGE 32 Take estrogen and/or progesterone medications: YES How long: SINCE AGE 32 MEDICATIONS: Thyroid Medications: YES Which medication: Synthroid How Lon+ YEARS Additional Medications: VIT D, HORMONE PATCH, SYNTHROID, CRESTOR, EXAM MEASUREMENTS: Bone mineral densitometry was performed using the [employer] System. Bone mineral density as measured about the Lumbar spine is: ----- L1-L4(G/cm2): 1.140 T Score Values are as follows: ----- L2: -1.2 ----- L3: -0.3 ----- L4: -0.3 ----- L1-L4: -0.3 Bone mineral density BASELINE Bone mineral density about the R hip (g/cm2): 1.044 Bone mineral density about the L hip (g/cm2): 0.875 T Score values are as follows: -----R Neck: 0.0 -----L Neck: -1.2 -----R Total: -0.5 -----L Total: -0.6 Bone mineral density BASELINE IMPRESSION: No evidence for osteoporosis or osteopenia. NOTE: T-SCORE=SD OF THE YOUNG ADULT MEAN.
== END | disposition home or self-care (01) ==
LOC: RADBDWWP 09:00
PROVIDERS: ATTEND Family Medicine
DX: Z78.0 Asymptomatic menopausal state (principal)
CPT/HCPCS: 77080

== ENCOUNTER → 2021-10-19 | Outpatient (CLI) | payer MEDICARE ==
[2021-10-20 00:38] LABS: African American GFR (CKD) 67.7 (60.0-200.0); Albumin 4.6 g/dL (3.8-4.9); Albumin/Globulin Ratio 1.97 (1.60-3.17); Anion Gap 13.4 mmol/L (10.00-18.00); BUN/Creat Ratio 17.62 Ratio (12.00-20.00); Blood Urea Nitrogen 17.8 mg/dL (9.0-27.0); Calcium 9.9 mg/dL (8.7-10.3); Carbon Dioxide 20.7 mmol/L (20.0-27.5); Globulin 2.4 g/dL (1.6-3.3); Non-African American GFR(CKD) 58.4 (60.0-200.0); Potassium 3.9 mmol/L (3.5-5.5); Total Bilirubin 0.3 mg/dL (0.30-1.20)
== END | disposition home or self-care (01) ==
LOC: LABWHC1 16:24
PROVIDERS: ATTEND Internal Medicine Endocrinology, Diabetes & Metabolism
DX: E03.8 Other specified hypothyroidism (principal); E21.3 Hyperparathyroidism, unspecified
CPT/HCPCS: 36415; 80053; 82306; 83970; 84443

== ENCOUNTER → 2022-06-07 | Outpatient (CLI) | payer MEDICARE ==
--- NOTE | 2022-06-07 13:48 | US ---
EXAMINATION TYPE: US venous doppler duplex LE LT DATE OF EXAM: 06/07/2022 1:21 PM COMPARISON: NONE CLINICAL HISTORY: I80.9 PHLEBITIS AND THROMBOPHLEBITIS OF UNSP. h/o DVT in left leg 30 years ago, now having calf pain SIDE PERFORMED: Left TECHNIQUE: The lower extremity deep venous system is examined utilizing real time linear array sonog william with graded compression, doppler sonography and color-flow sonography. VESSELS IMAGED: Common Femoral Vein Deep Femoral Vein Greater Saphenous Vein * Femoral Vein Popliteal Vein Small Saphenous Vein * Proximal Calf Veins (* superficial vessels) Grayscale, color doppler, spectral doppler imaging performed of the deep veins of the lower extremiti es. There is normal flow, compressibility, vascular waveforms. Left Leg: Negative for DVT office called with negative verbal at 1:30 IMPRESSION: No evidence for deep venous thrombosis of the left lower extremity.
== END ==
LOC: RADUSWWP 12:59
PROVIDERS: ATTEND Orthopaedic Surgery
DX: I80.9 Phlebitis and thrombophlebitis of unspecified site (principal); Z86.718 Personal history of other venous thrombosis and embolism

== ENCOUNTER 2022-10-27 05:54 | Day surgery (SDC) | payer MEDICARE ==
[2022-10-22 14:56] VITALS: BMI 29.6
--- NOTE | 2022-10-26 19:44 | P.HPOB ---
History of Present Illness H&P Date: 10/26/22 Chief Complaint: Cystocele and rectocele with urinary stress incontinence This is a 67 y.o. female, 5, para 0, who presents for anterior and posterior vaginal colporrhaphy with transobturator sling due to prolapse and urinary stress incontinence. She complains of perineal pressure and irritation due to pads and constipation. She has been experiencing worsening urinary stress incontinence. She has been evaluated by Dr. Rodriguez who recommends sling for stress incontinence. Symptoms have gradually worsened over the years. OB Hx: . History of 3 miscarriages and 2 ectopics. Business Support Administrator Hx: Hx of endometriosis. No history of STDs. Social Hx: . Works at [employer] in [facility]. Review of Systems Constitutional: Reports night sweats, Reports weight gain, Denies chills, Denies fever Eyes: bilateral blurred vision, denies pain Ears, nose, mouth and throat: Reports headache (sinus), Denies sore throat Breasts: bilateral: pain Cardiovascular: Denies chest pain, Denies shortness of breath Respiratory: Denies cough Gastrointestinal: Reports heartburn, Denies abdominal pain, Denies diarrhea, Denies nausea, Denies vomiting Genitourinary: Reports prolapse symptoms, Reports stress incontinence, Reports urgency, Reports urinary frequency, Denies dysuria, Denies hematuria Menstruation: Reports post hysterectomy, Reports postmenopausal Musculoskeletal: Reports low back pain, Reports muscle cramps, Reports myalgias Integumentary: Denies pruritus, Denies rash Neurological: Denies numbness, Denies weakness Psychiatric: Reports difficulty concentrating, Reports insomnia, Reports memory loss Endocrine: Reports flushing Past Medical History Past Medical History: Deep Vein Thrombosis (DVT) (Hx in past after surgery), Eye Disorder, GERD/Reflux, Renal Disease, Thyroid Disorder Additional Past Medical History / Comment(s): occasional tachycardia, DVT-LEG , MACULAR DEGENERATION BILATERAL EYES, HYPOGLYCEMIA , ASCENDING AORTIC ANEURSYM, HX CKD-NUMBERS ARE GETTING BETTER History of Any Multi-Drug Resistant Organisms: None Reported Past Surgical History: Breast Surgery, Heart Catheterization, Hernia Repair, Hysterectomy (PRABHA-BSO), Tonsillectomy Additional Past Surgical History / Comment(s): Right breast cyst aspiration, excisional biopsy left breast, 2 excisional biopsies right breast. D&C X4, LAPAROSCOPIC EXAM, LAPAROTOMY-ECTOPIC PREG, RIGHT WRIST SURGERY, PAIN CLINIC INJECTIONS, INGUINAL AND FEMORAL HERNIA REPAIR, EGD,COLONOSCPY, PILONIDAL CYST SURGERY, RT BUTTOCK SURGERY R/T PUNCTURE WOUND Past Anesthesia/Blood Transfusion Reactions: Previous Problems w/ Anesthesia, Motion Sickness, Postoperative Nausea & Vomiting (PONV) Past Psychological History: No Psychological Hx Reported Smoking Status: Never smoker Past Alcohol Use History: Occasional Past Drug Use History: None Reported - Past Family History Sister(s) Family Medical History: Cancer Additional Family Medical History / Comment(s): Sister SKIN CANCER-breast cancer/brain tumor Medications and Allergies Home Medications Medication Instructions Recorded Confirmed Type Levothyroxine Sodium [Tirosint] 88 mcg PO DAILY 04/01/17 10/22/22 History estradioL [Climara 0.025 MG] 0.5 patch TRANSDERM Q7DAYS 04/01/17 10/27/22 History Rosuvastatin [Crestor] 20 mg PO HS 10/22/22 10/27/22 History Allergies Allergy/AdvReac Type Severity Reaction Status Date / Time adhesive tape Allergy BLISTERS, Verified 10/27/22 06:31 RED SKIN Iodinated Contrast Media Allergy Nausea & Verified 10/27/22 06:31 [Iodinated Contrast- Oral Vomiting, and IV Dye] SHAKING, POSS SOB meperidine HCl [From Demerol] Allergy Nausea & Verified 10/27/22 06:31 Vomiting methocarbamol [From Robaxin] Allergy Rash/Hives Verified 10/27/22 06:31 minocycline Allergy Anaphylaxis Verified 10/27/22 06:31 moxifloxacin [From Avelox] Allergy tendon Verified 10/27/22 06:31 problem Quinolones Allergy problem Verified 10/27/22 06:31 with tendon scopolamine Allergy Rapid Verified 10/27/22 06:31 Heart Rate fentanyl AdvReac Vomiting Verified 10/27/22 06:31 Exam Osteopathic Statement: *. No significant issues noted on an osteopathic structural exam other than those noted in the History and Physical/Consult. Intake and Output 10/26/22 10/26/22 10/26/22 06:59 14:59 22:59 Other: Weight 85.729 kg HEENT: within normal limits Heart: regular rate and rhythm Lungs: clear to auscultation bilaterally Abdomen: soft, non-tender Pelvic: 2nd-3rd degree cystocele, 1st-2nd degree retocele, no adnexal masses or tenderness Extremities: neg. Nayana's Assessment and Plan (1) Cystocele with rectocele Current Visit: No Status: Acute Code(s): N81.10 - CYSTOCELE, UNSPECIFIED; N81.6 - RECTOCELE SNOMED Code(s): 595362512 (2) Urinary, incontinence, stress female Current Visit: No Status: Acute Code(s): N39.3 - STRESS INCONTINENCE (FEMALE) (MALE) SNOMED Code(s): 84257490 Plan: Proceed with anterior and posterior vaginal colporrhaphy with Dr. Rodriguez to perform transobturator sling. I have discussed the risks, benefits, and alternative therapies for the above- mentioned procedure and for both sedation/anesthesia as well as necessary blood products administration, if indicated, as they pertain to this patient. The patient has indicated her understanding and acceptance of the risks and procedures discussed.
--- NOTE | 2022-10-26 20:48 | P.GSHP ---
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 The risks and complications have been discussed including the mesh controversy. Retention, erosion perisstent incontinence as well as dyspareunia among others have been discussed. - Constitutional Constitutional: Denies chills, Denies fever - EENT Eyes: denies blurred vision, denies pain Ears, nose, mouth and throat: Denies headache, Denies sore throat - Cardiovascular Cardiovascular: Denies chest pain, Denies shortness of breath - Respiratory Respiratory: Denies cough, Denies 7 - Gastrointestinal Gastrointestinal: Denies abdominal pain, Denies diarrhea, Denies nausea, Denies vomiting - Genitourinary (Female) Genitourinary: Denies dysuria, Denies hematuria - Genitourinary (Male) Genitourinary: Denies dysuria, Denies hematuria - Musculoskeletal Musculoskeletal: Denies myalgias - Integumentary Integumentary: Denies pruritus, Denies rash - Neurological Neurological: Denies numbness, Denies weakness - Psychiatric Psychiatric: Denies anxiety, Denies depression - Endocrine Endocrine: Denies fatigue, Denies weight change Past Medical History Past Medical History: Deep Vein Thrombosis (DVT) (Hx in past after surgery), Eye Disorder, GERD/Reflux, Renal Disease, Thyroid Disorder Additional Past Medical History / Comment(s): occasional tachycardia, DVT-LEG , MACULAR DEGENERATION BILATERAL EYES, HYPOGLYCEMIA , ASCENDING AORTIC ANEURSYM, HX CKD-NUMBERS ARE GETTING BETTER History of Any Multi-Drug Resistant Organisms: None Reported Past Surgical History: Breast Surgery, Heart Catheterization, Hernia Repair, Hysterectomy (PRABHA-BSO), Tonsillectomy Additional Past Surgical History / Comment(s): Right breast cyst aspiration, excisional biopsy left breast, 2 excisional biopsies right breast. D&C X4, LAPAROSCOPIC EXAM, LAPAROTOMY-ECTOPIC PREG, RIGHT WRIST SURGERY, PAIN CLINIC INJECTIONS, INGUINAL AND FEMORAL HERNIA REPAIR, EGD,COLONOSCPY, PILONIDAL CYST SURGERY, RT BUTTOCK SURGERY R/T PUNCTURE WOUND Past Anesthesia/Blood Transfusion Reactions: Previous Problems w/ Anesthesia, Motion Sickness, Postoperative Nausea & Vomiting (PONV) Past Psychological History: No Psychological Hx Reported Smoking Status: Never smoker Past Alcohol Use History: Occasional Past Drug Use History: None Reported - Past Family History Sister(s) Family Medical History: Cancer Additional Family Medical History / Comment(s): Sister SKIN CANCER-breast cancer/brain tumor Medications and Allergies Home Medications Medication Instructions Recorded Confirmed Type Levothyroxine Sodium [Tirosint] 88 mcg PO DAILY 04/01/17 10/22/22 History estradioL [Climara 0.025 MG] 0.5 patch TRANSDERM Q21D 04/01/17 10/22/22 History Rosuvastatin [Crestor] 20 mg PO HS 10/22/22 10/22/22 History Allergies Allergy/AdvReac Type Severity Reaction Status Date / Time adhesive tape Allergy BLISTERS, Verified 10/22/22 14:42 RED SKIN Iodinated Contrast Media Allergy Nausea & Verified 10/22/22 14:42 [Iodinated Contrast- Oral Vomiting, and IV Dye] SHAKING, POSS SOB meperidine HCl [From Demerol] Allergy Nausea & Verified 10/22/22 14:42 Vomiting methocarbamol [From Robaxin] Allergy Rash/Hives Verified 10/22/22 14:42 minocycline Allergy Anaphylaxis Verified 10/22/22 14:42 moxifloxacin [From Avelox] Allergy tendon Verified 10/22/22 14:42 problem Quinolones Allergy problem Verified 10/22/22 14:42 with tendon scopolamine Allergy Rapid Verified 10/22/22 14:42 Heart Rate fentanyl AdvReac Vomiting Verified 10/26/22 19:39 Surgical - Exam - General well developed, well nourished, no distress - Eyes normal ocular movement, no icteric - ENT no hearing loss, no congestion - Neck no masses, trachea midline - Respiratory normal respiratory effort, clear to auscultation - Abdomen Abdomen: soft, non tender, no guarding, no rigid, no rebound - Genitourinary cysto rectocel, mobile urethra plus ana m. - Integumentary no rash, no abnormal pigmentation - Neurologic no disoriented, no combative - Psychiatric oriented to time, oriented to person, oriented to place, speech is normal, memory intact Assessment and Plan Assessment: Impression: cystorectocele, ana m Plan AP repair[dr salazar]. pubovaginal sling with lynx, cysto[ dr lion]
[2022-10-27] MEDS ORDERED: MIDAZOLAM 2 MG/2 ML VIAL IV PRN (06:15)
[2022-10-27] MEDS ORDERED: LACTATED RINGERS 1,000 ML IV SCH (06:15)
[2022-10-27] MEDS ORDERED: DEXAMETHASONE SOD PHOSPHATE 4 MG/ML 1 ML VIAL IV ONE (06:15)
[2022-10-27] MEDS ORDERED: ONDANSETRON 4 MG/2 ML VIAL IVP ONE (06:15)
[2022-10-27] MEDS ORDERED: fentaNYL (PF) 50 MCG/ML 2 ML AMP IV PRN (07:00)
[2022-10-27 07:12] LABS: Glucose,Whole Blood 97 mg/dL (70-110)
[2022-10-27] MEDS: AMPICILLIN 1,000 MG in SODIUM CHLORIDE 0.9% 50 ML IVPB PRN ×2 (07:15→07:30)
[2022-10-27] MEDS ORDERED: MIDAZOLAM 2 MG/2 ML VIAL ONE (07:24)
[2022-10-27] MEDS ORDERED: diphenhydrAMINE 50 MG/ML 1 ML VIAL ONE (07:24)
[2022-10-27] MEDS ORDERED: PHENYLEPHRINE-0.9% NACL SYG 1,000 MCG/10 ML SYRINGE ONE (07:24)
[2022-10-27] MEDS ORDERED: KETOROLAC 15 MG/ML 1 ML VIAL ONE (07:24)
[2022-10-27] MEDS ORDERED: MORPHINE SULFATE (PF) 0.3 MG/0.3 ML SYR ONE (07:24)
[2022-10-27] MEDS ORDERED: PROPOFOL 10 MG/ML 20 ML VIAL IV ONE (07:24)
[2022-10-27] MEDS: GENTAMICIN 110 MG in SODIUM CHLORIDE 0.9% 100 ML IVPB PRN ×2 (07:30→07:35)
[2022-10-27] MEDS ORDERED: VASOPRESSIN 20 UNIT/ML 1 ML VIAL IM ONE (08:00)
[2022-10-27] MEDS ORDERED: GENTAMICIN 40 MG/ML 2 ML VIAL IRRIGATION ONE (08:04)
[2022-10-27] MEDS ORDERED: BACITRACIN ZINC 500 UNIT/GM OINT 28.4 GM TUBE TOPICAL ONE (08:35)
[2022-10-27] MEDS ORDERED: LACTATED RINGERS 1,000 ML IV ONE (08:39)
--- NOTE | 2022-10-27 08:43 | P.OP ---
Date of Procedure: 10/27/22 Preoperative Diagnosis: Cystocele and rectocele Urinary stress incontinence Postoperative Diagnosis: Same Procedure(s) Performed: Anterior and posterior vaginal colporrhaphy Pubovaginal sling-performed by Dr. Rodriguez Anesthesia: spinal (Duramorph) Surgeon: Bijal Salazar Pool Servicer #1: Gregg Ayala (Assist on anterior repair) Pool Servicer #2: Nayan Rodriguez (Assist on posterior repair) Estimated Blood Loss (ml): 20 Pathology: other (Vaginal mucosa) Condition: stable Disposition: floor Indications for Procedure: This is a 67 y.o. female, 5, para 0, who presents for anterior and posterior vaginal colporrhaphy with transobturator sling due to prolapse and urinary stress incontinence. She complains of perineal pressure and irritation due to pads and constipation. She has been experiencing worsening urinary stress incontinence. She has been evaluated by Dr. Rodriguez who recommends sling for stress incontinence. Symptoms have gradually worsened over the years. Operative Findings: Approximately grade 1-2 cystocele is noted. Grade 1-2 rectocele is noted. Description of Procedure: The patient is taken to the operating room she is placed in the dorsal lithotomy position. She is prepped and draped in the normal sterile fashion. The weighted speculum was placed in the patient's vagina and 2 Allis clamps are used to grasp the vaginal cuff. Injection of 1 amp of epinephrine to 150 mL of normal saline was injected underneath the vaginal mucosa upwards towards the urethra. A small transverse incision is made between the 2 Allis clamps and then Metzenbaum scissors are used to dissect underneath the vaginal mucosa upwards towards the urethra. The edges of the vaginal mucosa are held with Allis clamps. The cystocele was dissected away from the vaginal mucosa with sharp and blunt dissection. Once the cystocele is freed, Dr. Rodriguez performed his portion of the surgery. This will be dictated separately. Once the sling was in place, the cystocele was reduced with 0 Vicryl suture in interrupted fashion. Next the vaginal mucosa was trimmed. This was sutured with 0 Vicryl suture in a running locked fashion. Fields catheter had previously been placed by Dr. Thompson and clear urine was noted. Next attention was turned to the rectocele. This was rather small. The introitus was grasped at the 6 o'clock position with 2 Allis clamps and then injection of the same epinephrine solution was injected underneath the vaginal mucosa upwards towards the vaginal cuff. A small vertical incision was made between the 2 Allis clamps at the 6 o'clock position and then Metzenbaum scissors were used to dissect underneath the vaginal mucosa upwards towards the vaginal cuff. The small rectocele was then dissected away from the vaginal mucosa with sharp and blunt dissection. Once this was freed the rectocele was reduced with 0 Vicryl suture in interrupted stitches. The edges of the vaginal mucosa were carefully trimmed and then the vaginal mucosa was sutured with 0 Vicryl suture in a running locked fashion all the way to the introitus and perineum. Good hemostasis was noted. The vagina was then packed with one-inch iodoform gauze with bacitracin ointment. Again clear urine was noted. All sponge and needle counts are correct. The patient is taken to recovery room in stable condition.
--- NOTE | 2022-10-27 08:51 | P.OP ---
Date of Procedure: 10/27/22 Preoperative Diagnosis: Stress urinary incontinence Postoperative Diagnosis: Same Procedure(s) Performed: Pubovaginal sling (Lynx ), cystoscopy Anesthesia: SABINAA Surgeon: Nayan Rodriguez Estimated Blood Loss (ml): 10 Pathology: none sent Condition: stable Disposition: PACU Indications for Procedure: The patient is 67. She has notable stress incontinence up to 10 pads per day. She has a hypermobile urethra. She leaks with significant Valsalva. Due to the volume of leakage. She'll undergo pubovaginal sling. An extensive discussion about the mesh controversy. She has elected to proceed with the mesh. I'll do a pubovaginal sling (Lynx) with cystoscopy. Description of Procedure: Patient brought to the operating suite. Given a general anesthetic. Dr. Salazar has proceeded with her anterior repair. The close his open. I make 2 incisions each at the corners of the pubis. I passed the Lynx introducers into the retropubic space into the vagina bilaterally. I remove the Fields and introduce the 17-Bulgarian sheath to the Foroblique cystoscope. There is no evidence of penetration in the bladder the bladder is otherwise normal. I then attached the grafted introducers and pull the graft back suprapubically. It lay at the bladder neck nicely. Elevates the bladder neck appropriately endoscopically. The redundant achieving is removed tip. The excess graft at the suprapubic incision is removed. The superficial pubic incisions are closed with 4-[address] Salazar proceeds with surgery the anterior repair and the posterior repair which she will dictate. Blood loss for my portion of the procedure is minimal. She'll be placed in the hospital postoperatively.
[2022-10-27 09:12] VITALS: RESP 16
[2022-10-27] MEDS ORDERED: HYDROmorphone 0.5 MG/0.5 ML SYRINGE IVP ONE (09:20)
[2022-10-27] MEDS ORDERED: ACETAMINOPHEN IV (For NPO) 1,000 MG in EMPTY BAG 1 BAG IVPB ONE (10:09)
[2022-10-27] MEDS ORDERED: ZOLPIDEM 5 MG TAB PO PRN (10:09)
[2022-10-27] MEDS ORDERED: ONDANSETRON 4 MG/2 ML VIAL IVP PRN (10:09)
[2022-10-27] MEDS ORDERED: Acetaminophen-Codeine 300-30mg TAB PO PRN ×2 (10:09)
[2022-10-27] MEDS ORDERED: SIMETHICONE 80 MG CHEWABLE PO PRN (10:09)
[2022-10-27] MEDS ORDERED: METOCLOPRAMIDE 5 MG/ML 2 ML VIAL IVP PRN (10:09)
[2022-10-27] MEDS ORDERED: diphenhydrAMINE 50 MG/ML 1 ML VIAL IVP PRN (10:09)
[2022-10-27] MEDS: LEVOTHYROXINE 88 MCG TAB PO SCH (11:23)
[2022-10-27] MEDS: SENNOSIDES-DOCUSATE SODIUM 1 EACH TAB PO SCH ×2 (12:26→20:20)
[2022-10-27] MEDS: LACTATED RINGERS 1,000 ML IV SCH (16:30)
[2022-10-27] MEDS: KETOROLAC 15 MG/ML 1 ML VIAL IVP PRN (20:20)
[2022-10-27] MEDS ORDERED: ATORVASTATIN 40 MG TAB PO SCH (21:00)
[2022-10-28] MEDS: LACTATED RINGERS 1,000 ML IV SCH ×3 (06:02→17:20)
[2022-10-28 06:09] LABS: Basophils % (A) 0 %; Eosinophils % (A) 0 %; HCT 38.9 % (34.0-46.0); HGB 13.4 gm/dL (11.4-16.0); Lymphocytes # (A) 1.9 k/uL (1.0-4.8); Lymphocytes % (A) 13 %; MCH 30.2 pg (25.0-35.0); MCHC 34.3 g/dL (31.0-37.0); MCV 87.8 fL (80.0-100.0); Mean Platelet Volume 9.6; Monocytes # (A) 0.8 k/uL (0-1.0); Monocytes % (A) 5 %; Neutrophils # (A) 11.6 k/uL (1.3-7.7); Neutrophils % (A) 80 %; Platelet Count 285 k/uL (150-450); RBC 4.43 m/uL (3.80-5.40); RDW 13.2 % (11.5-15.5); WBC 14.5 k/uL (3.8-10.6)
[2022-10-28] MEDS: LEVOTHYROXINE 88 MCG TAB PO SCH (07:31)
[2022-10-28] MEDS ORDERED: ACETAMINOPHEN TAB 325 MG TAB PO PRN (07:49)
--- NOTE | 2022-10-28 08:49 | P.DS ---
Providers Date of admission: 10/27/2022 Expected date of discharge: 10/28/22 Attending physician: Bijal Salazar Primary care physician: Emmanuel Barclay - Discharge Diagnosis(es) (1) Cystocele with rectocele Current Visit: No Status: Acute (2) Urinary, incontinence, stress female Current Visit: No Status: Acute Hospital Course: This is a 67-year-old female who underwent a anterior and posterior vaginal colporrhaphy with pubovaginal sling performed by Dr. Rodriguez on 10/27/2022. Postoperatively she has done well. She has been ambulating. Pain is been fairly well-controlled. Bleeding has been minimal. Her catheter was just removed this morning. She has not been able to urinate yet. Packing was also removed this morning. She is passing flatus but no bowel movement yet. Vital signs are stable. Abdomen is soft with positive bowel sounds 4. Isabel-pad shows scant serosanguineous discharge. Extremities show negative Homans. Procedures: Anterior and posterior vaginal colporrhaphy 10/27/2022 Pubo-vaginal sling Patient Condition at Discharge: Stable Plan - Discharge Summary Discharge Rx Participant: Yes New Discharge Prescriptions: New Acetaminophen-Codeine 300-30mg [Tylenol w/codeine #3] 1 each PO Q4HR PRN #30 tab PRN Reason: Moderate Pain (Scale 4 To 6) Continue estradioL [Climara 0.025 MG] 0.5 patch TRANSDERM Q7DAYS Levothyroxine Sodium [Tirosint] 88 mcg PO DAILY Rosuvastatin [Crestor] 20 mg PO HS Discharge Medication List Levothyroxine Sodium [Tirosint] 88 mcg PO DAILY 04/01/17 [History] estradioL [Climara 0.025 MG] 0.5 patch TRANSDERM Q7DAYS 04/01/17 [History] Rosuvastatin [Crestor] 20 mg PO HS 10/22/22 [History] Acetaminophen-Codeine 300-30mg [Tylenol w/codeine #3] 1 each PO Q4HR PRN #30 tab 10/28/22 [Rx] Follow up Appointment(s)/Referral(s): Bijal Salazar DO [Doctor of Osteopathic Medicine] - 1 Week Activity/Diet/Wound Care/Special Instructions: Activity as tolerated. Diet as tolerated. May shower, but no tub baths for 1 week. No intercourse for 6 weeks. No heavy lifting, bending, stooping, pulling or pushing. Discharge Disposition: HOME SELF-CARE
[2022-10-28] MEDS: SENNOSIDES-DOCUSATE SODIUM 1 EACH TAB PO SCH (10:04)
[2022-10-28] MEDS: KETOROLAC 15 MG/ML 1 ML VIAL IVP PRN (11:33)
[2022-10-28 16:42] VITALS: BP 111/69; PULSE 69; TEMP 97.8
== END 2022-10-28 18:55 | disposition home or self-care (01) ==
LOC: OR 05:54 → 4FBP 08:45 → OR 10-28 18:55
PROVIDERS: ATTEND Obstetrics & Gynecology
DX: N81.10 Cystocele, unspecified (principal); N81.6 Rectocele; N39.3 Stress incontinence (female) (male); N36.41 Hypermobility of urethra; Z87.42 Personal history of other diseases of the female genital tract; Z86.718 Personal history of other venous thrombosis and embolism; H35.30 Unspecified macular degeneration; K21.9 Gastro-esophageal reflux disease without esophagitis; N18.9 Chronic kidney disease, unspecified; E07.9 Disorder of thyroid, unspecified; I71.40 Abdominal aortic aneurysm, without rupture, unspecified; Z98.890 Other specified postprocedural states; Z90.722 Acquired absence of ovaries, bilateral; F10.20 Alcohol dependence, uncomplicated; Z80.8 Family history of malignant neoplasm of other organs or systems; Z80.3 Family history of malignant neoplasm of breast; Z79.890 Hormone replacement therapy; Z79.899 Other long term (current) drug therapy; Z91.041 Radiographic dye allergy status; Z91.048 Other nonmedicinal substance allergy status; Z88.8 Allergy status to other drugs, medicaments and biological substances; Z88.5 Allergy status to narcotic agent
CPT/HCPCS: 85025; 88302; 57260; 57288; C1771; J0171; J1200; J1580 ×2; J1100; J2405; J0290; J0131; J1885 ×2; J1170

== ENCOUNTER → 2023-07-07 | Outpatient (CLI) | payer MEDICARE ==
--- NOTE | 2023-07-07 10:46 | MM ---
Reason for Exam: Clinical finding. Last mammogram was performed 1 year(s) and 1 month(s) ago. Indicated Problems: Lump or thickening of the right side for 2 Week(s). Patient History: Menarche at age 15. Patient has no children. Left ovary removed at age 35. Right ovary removed at age 35. Hysterectomy at age 35. Postmenopausal. Currently using Estrogen, for 17 years, 1 month. Excisional Biopsy on the Right side. Excisional Biopsy on the Right side. Excisional Biopsy on the Left side. 04/05/2017, Benign Core Biopsy on the right side. 09/10/2011, Benign Cyst Aspiration on the right side. Maternal aunt had breast cancer, age 50. Sister had breast cancer. Risk Values: Yasmin 5 year model risk: 4.5%. NCI Lifetime model risk: 14.9%. Prior Study Comparison: 05/16/2018 Bilateral Diagnostic Mammogram, [facility]. 04/04/2020 Bilateral Diagnostic Mammogram, [facility]. 06/03/2021 Bilateral Diagnostic Mammogram, [facility]. 06/03/2022 Bilateral MG 3D diag mammo w/cad JOE, [facility]. Tissue Density: The breast tissue is heterogeneously dense. This may lower the sensitivity of mammography. Findings: Analyzed By CAD. No distinct mass or distortion. Prior of biopsy clips right breast. No suspicious microcalcifications. Overall Assessment: Incomplete: need additional imaging evaluation, BI-RAD 0 Management: Diagnostic Breast Ultrasound of the right breast. . Results were given to the patient verbally at the time of exam. Patient should continue monthly self-breast exams. A clinical breast exam by your physician is recommended on an annual basis. This exam should not preclude additional follow-up of suspicious palpable abnormalities. Note on Yasmin scores and lifetime risk: 1. A Yasmin score greater than 3% is considered moderate risk. If this is the case, consider specialist referral to assess eligibility for a risk reducing agent. 2. If overall lifetime risk for the development of breast cancer is 20% or higher, the patient may qualify for future screening with alternating mammogram and breast MRI. Electronically signed and approved by: Ford Larry M.D. Radiologis
--- NOTE | 2023-07-07 11:08 | USB ---
Reason for Exam: Clinical finding. Patient History: Menarche at age 15. Patient has no children. Left ovary removed at age 35. Right ovary removed at age 35. Hysterectomy at age 35. Postmenopausal. Currently using Estrogen, for 17 years, 1 month. Excisional Biopsy on the Right side. Excisional Biopsy on the Right side. Excisional Biopsy on the Left side. 04/05/2017, Benign Core Biopsy on the right side. 09/10/2011, Benign Cyst Aspiration on the right side. Maternal aunt had breast cancer, age 50. Sister had breast cancer. Risk Values: Yasmin 5 year model risk: 4.5%. NCI Lifetime model risk: 14.9%. Technique: Method: Targeted. Prior Study Comparison: 04/04/2020 Bilateral Diagnostic Mammogram, [facility]. 06/03/2021 Bilateral Diagnostic Mammogram, [facility]. 06/03/2022 Bilateral MG 3D diag mammo w/cad JOE, [facility]. Findings: The area of palpable concern of the right breast, the axilla of the right breast and the retroareolar of the right breast were scanned. No solid or cystic masses are identified. Manage clinically. Overall Assessment: Negative, BI-RAD 1 Management: Screening Mammogram of both breasts in 1 year. A clinical breast exam by your physician is recommended on an annual basis and results should be correlated with mammographic findings. This exam should not preclude additional follow-up of suspicious palpable abnormalities. Results were given to the patient verbally at the time of exam. Electronically signed and approved by: Ford Larry M.D. Radiologis
== END | disposition home or self-care (01) ==
LOC: RADMAMWWP 10:22
PROVIDERS: ATTEND Obstetrics & Gynecology
DX: R92.313 Mammographic fatty tissue density, bilateral breasts (principal); N63.10 Unspecified lump in the right breast, unspecified quadrant; Z78.0 Asymptomatic menopausal state; Z80.3 Family history of malignant neoplasm of breast
CPT/HCPCS: 77066; 76642; G0279; 77062

== ENCOUNTER → 2023-08-04 | Outpatient (CLI) | payer MEDICARE ==
--- NOTE | 2023-08-04 12:38 | US ---
EXAMINATION TYPE: US venous doppler duplex LE LT DATE OF EXAM: 08/04/2023 10:32 AM COMPARISON: US CLINICAL INDICATION: Female, 68 years old with history of LLE; I80.9 PHLEBITIS AND THROMBOPHLEBITIS; Left calf pain SIDE PERFORMED: Left TECHNIQUE: The lower extremity deep venous system is examined utilizing real time linear array sonog william with graded compression, doppler sonography and color-flow sonography. VESSELS IMAGED: Common Femoral Vein Deep Femoral Vein Greater Saphenous Vein * Femoral Vein Popliteal Vein Small Saphenous Vein * Proximal Calf Veins (* superficial vessels) Left Leg: Negative for DVT IMPRESSION: 1. Left lower extremity ultrasound negative for deep venous thrombosis.
== END | disposition home or self-care (01) ==
LOC: RADUSWWP 10:09
PROVIDERS: ATTEND Orthopaedic Surgery
DX: I80.9 Phlebitis and thrombophlebitis of unspecified site (principal); M23.307 Other meniscus derangements, unspecified meniscus, left knee; M23.8X2 Other internal derangements of left knee; M17.12 Unilateral primary osteoarthritis, left knee; M25.462 Effusion, left knee